=== PATIENT | female | born 1950 | race Caucasian/White ===

== ENCOUNTER → 2018-06-08 07:31 | Outpatient (CLI) | payer MEDICARE, OTHER, SELFPAY ==
--- NOTE | 2018-06-08 07:34 | DI.MG.S_ITS ---
BILATERAL DIGITAL SCREENING MAMMOGRAM 3D/2D WITH CAD: 06/08/2018 CLINICAL: Routine screening. Comparison is made to exams dated: 04/28/2017 mammogram, 04/22/2016 mammogram - [facility], and 07/15/2014 mammogram - [facility]. There are scattered fibroglandular elements in both breasts. Current study was also evaluated with a Computer Aided Detection (CAD) system. No significant masses, calcifications, or other findings are seen in either breast. There has been no significant interval change. IMPRESSION: NEGATIVE There is no mammographic evidence of malignancy. A 1 year screening mammogram is recommended. This exam was interpreted at Station ID: [id number]. NOTE: For mammograms, a report in lay terms will be sent to the patient. Approximately 15% of breast malignancies will not be visualized mammographically. In the management of a palpable breast mass, a negative mammogram must not discourage biopsy of a clinically suspicious lesion. Electronically Signed By: Phong castro/yahaira:06/08/2018 20:24:45 letter sent: Normal Exam ACR BI-RADS Category 1: Negative [id number]
== END ==
PROVIDERS: PCP Family Medicine; Visit Provider Family Medicine
DX: Z12.31 Encounter for screening mammogram for malignant neoplasm of breast (principal)
CPT/HCPCS: 77063; 77067

== ENCOUNTER → 2018-11-09 07:40 | Outpatient (CLI) | payer MEDICARE, OTHER, SELFPAY ==
--- NOTE | 2018-11-09 | DI.MRI.S_ITS ---
PROCEDURE: MR KNEE LT WO CON INDICATIONS: PAIN IN LEFT KNEE TECHNIQUE: Noncontrast sagittal PD fast spin echo and T2 fast spin echo with fat saturation, sagittal 3-D FLASH with fat saturation; coronal T1 spin echo and PD fast spin echo with fat saturation, and axial PD fast spin echo with fat saturation through the knee. COMPARISON: [facility], MR, LOWER EXTREM. JNT WO CONTRAST, 01/26/2010, 18:28. [facility], CR, XR KNEE ARTHRITIC SERIES LT, 06/02/2018, 8:35. FINDINGS: Image quality: Excellent. Menisci: There is medial extrusion of the medial meniscus, a new since the prior examination. Linear high signal intensity obliquely traversing the posterior horn medial meniscus is present, and is more apparent, indicating progressive oblique tearing. No amorphous signal within the medial meniscal body is present, demonstrating inferior articular surface extension, indicating degenerative tearing. The anterior horn lateral meniscus is diminutive, compatible with postsurgical sequelae. Cruciate ligaments: The anterior and posterior cruciate ligaments appear intact. There is new moderate T2 signal elevation along the course of the anterior cruciate ligament. Medial structures: The medial collateral ligament appears intact. Small focus of fluid signal intensity within the semimembranosus at the musculotendinous junction. Visualized portions of the pes anserinus tendons appear normal. No abnormal bursal fluid. Lateral structures: The lateral collateral ligament, long and short heads of the biceps femoris tendon appear intact. The popliteus tendon appears normal. Iliotibial band appears normal. Anterior structures: The quadriceps and patellar tendons appear intact. Patellar alignment is normal. No femoral trochlear dysplasia or ventral trochlear prominence. No edema in the infrapatellar fat pad. Bones and cartilage: No bone marrow contusions or fractures. Moderate ill-defined T2 signal elevation within the central aspect of the tibial plateau is present, compatible with degenerative marrow edema. There is moderate tricompartmental periarticular osteophyte formation. Moderate diffuse articular cartilage loss overlies the weightbearing aspects of the medial femoral condyle and medial tibial plateau. Moderate articular cartilage loss overlies the weightbearing aspects of the lateral femoral condyle and lateral tibial plateau. Superimposed severe articular cartilage loss overlies the posterior weightbearing aspect of the lateral tibial plateau. Moderate cartilage loss overlies the patellar apex. Joint space: There is a small knee joint effusion and a small Moreno's cyst. Normal appearing synovial plicae are incidentally noted. IMPRESSION: 1. Progressive medial meniscal tearing. 2. Presumed postsurgical sequelae involving the lateral meniscus. 3. Myxoid degeneration of the anterior cruciate ligament. 4. Tricompartmental articular cartilage loss. 5. Small knee joint effusion and small Moreno's cyst. Dictated by: Rodrick Cardoso M.D. on 11/09/2018 at 10:30 Approved by: Rodrick Cardoso M.D. on 11/09/2018 at 10:40
== END ==
PROVIDERS: PCP Family Medicine; Visit Provider Orthopaedic Surgery
DX: M25.562 Pain in left knee (principal); S83.242A Other tear of medial meniscus, current injury, left knee, initial encounter; M71.22 Synovial cyst of popliteal space [Baker], left knee
CPT/HCPCS: 73721

== ENCOUNTER → 2018-11-24 09:33 | Outpatient (CLI) | payer MEDICARE, OTHER, SELFPAY ==
[2018-11-24 09:46] LABS: RBC Urine None Seen (0-5/HPF); WBC Urine None Seen (0-5/HPF)
[2018-11-24 10:14] LABS: Add Manual Diff / Slide Review NO; Basophils Absolute Auto 100 /uL (0-100); Basophils Percent Auto 0.7 % (0-2); Eosinophils Absolute Auto 100 /uL (0-450); Eosinophils Percent Auto 1.3 % (2-4); Hematocrit 41.5 % (36-46); Hemoglobin 13.9 g/dL (12.0-16.0); Lymphocytes Absolute Auto 2400 /uL (1100-4500); Lymphocytes Percent Auto 32.6 % (25-40); Mean Corpuscular HGB Conc 33.3 % (30-36); Mean Corpuscular Hemoglobin 29.7 PG (26-34); Mean Corpuscular Volume 89.2 fL (80-100); Monocytes Absolute Auto 500 /uL (0-900); Monocytes Percent Auto 7.4 % (3-14); Neutrophils Absolute Auto 4200 /uL (1500-7000); Platelet Count 261 X10^3/uL (150-400); Red Blood Cell Count 4.66 X10^6/uL (4.0-5.2); Red Cell Distribution Width 13.5 % (11.6-14.8); White Blood Cell Count 7.2 X10^3/uL (4.5-11.0)
[2018-11-24 10:22] LABS: Appearance Urine UA CLEAR; Bilirubin Urine UA NEGATIVE (NEGATIVE); Color Urine UA YELLOW; Glucose Urine UA NEGATIVE (Negative); Ketones Urine UA NEGATIVE (NEGATIVE); Leukocyte Esterase Urine UA NEGATIVE (NEGATIVE); Nitrite Urine UA NEGATIVE (Negative); Occult Blood Urine UA NEGATIVE (Negative); Protein Urine UA NEGATIVE (Negative); Urobilinogen Urine UA 0.2 E.U./dL (0.2)
[2018-11-24 10:26] LABS: Hemoglobin A1C% w Est Avg Glu 5.6 % (4.0-6.0)
[2018-11-24 10:36] LABS: Amorphous Sediment Urine 3+; Bacteria Urine Occasional (0-1); Culture Indicated Urine Cult Not Indicated
[2018-11-24 10:39] LABS: BUN Creatinine Ratio 38.6 (6-22); Blood Urea Nitrogen 27 mg/dL (7-17); Calcium 9.7 mg/dL (8.4-10.2); Carbon Dioxide 29 mmol/L (22-32); Chloride 104 mmol/L (98-107); Estimated Glomerular Filt Rate > 60.0 mL/min (>60); Glucose 90 mg/dL (80-110); HEMOLYSIS < 15 (0-50); Potassium 4.5 mmol/L (3.4-5.1); Sodium 141 mmol/L (137-145)
== END ==
PROVIDERS: Family Provider Family Medicine; PCP Family Medicine; Visit Provider Orthopaedic Surgery
DX: Z01.818 Encounter for other preprocedural examination (principal); Z01.812 Encounter for preprocedural laboratory examination; N39.9 Disorder of urinary system, unspecified; Z13.1 Encounter for screening for diabetes mellitus; R73.9 Hyperglycemia, unspecified
CPT/HCPCS: 36415; 80048; 81001; 83036; 85025; 93005; 93010

== ENCOUNTER 2019-02-09 06:17 | Day surgery (SDC) | payer MEDICARE, OTHER, SELFPAY ==
[2019-01-28 08:52] VITALS: BMI 24.2
[2019-02-09] VITALS (15 sets, daily range): BP systolic 114–139; BP diastolic 61–84; PULSE 75–104; RESP 13–21; TEMP 36.6–37.2; O2SAT 17–98; BMI 24.2
--- NOTE | 2019-02-09 06:00 | DI.RAD.S_ITS ---
PROCEDURE: XR KNEE LT 1TO2V INDICATIONS: prosthesis placement left knee TECHNIQUE: 2 view(s) of the knee acquired. COMPARISON: None. FINDINGS: Bones: Patient is status post knee joint arthroplasty. Hardware components are in expected positions. Visualized bony structures are intact. Soft tissues: Overlying postoperative changes are noted. IMPRESSION: Normal postoperative alignment after left total arthroplasty. A surgical drain overlies the operative bed. Dictated by: Jesus Will M.D. on 02/09/2019 at 11:06 Approved by: Jesus Will M.D. on 02/09/2019 at 11:07
[2019-02-09] MEDS: ACETAMINOPHEN 325 MG TABLET 975 MG PO ×2 (07:02→21:48)
[2019-02-09] MEDS: LACTATED RINGERS 1,000 ML 42 ML IV ×2 (07:03→09:20)
[2019-02-09] MEDS: MELOXICAM 7.5 MG TABLET 15 MG PO (07:03)
[2019-02-09] MEDS: PREGABALIN 75 MG CAPSULE PO (07:03)
[2019-02-09] MEDS: VANCOMYCIN 1,000 MG/200 ML FROZ.PIGGY 200 MG IV (07:15)
--- NOTE | 2019-02-09 07:59 | PM.PREOP ---
Pre-operative Note Interval Note History & Physical reviewed/Exam performed by Physician: Yes Changes to H&P: No
--- NOTE | 2019-02-09 07:59 | PM.OP.1 ---
Operative Date/Time/Diagnoses Date of procedure: 02/09/19 Time of procedure: 07:59 Pre-op diagnosis: left knee OA Post-op diagnosis: same Procedure & Clinicians Procedure: Left total knee arthroplasty Same procedure as scheduled: Yes Indications: The patient has had progressively worsening left knee pain with radiographic changes consistent with arthritis. Non-operative management has failed and the patient has requested total knee replacement. The risks, benefits and alternatives to surgery were discussed with the patient prior to proceeding. Risks discussed included, but were not limited to, failure to relieve pain, stiffness, infection, nerve damage, deep venous thrombosis, pulmonary embolism, stroke, coma, heart attack, permanent paralysis and , as well as the potential need for eventual revision of the prosthetic. Surgeon: Tejal Horvath Assistant Maintenance Manager: Marybel Olmstead Anesthesia Type: General and Spinal Operative Notes Findings: Severe left knee osteoarthritis, good stability Closure Type: primary Specimen(s): none sent Prosthetic devices, grafts, tissues, transplants, or devices: horvath and nephchristy byers BCS2 5 femur, 3 tibia, +9 poly, 35 by7.5 patella Applied: drain(s) Estimated Blood Loss (mL): 250 Blood products transfused: none Tourniquet time (min): 72 Procedure in detail: The patient was seen in the pre-operative area, where the patient identified the left knee as the operative site and this was marked with my initials. The patient received pre-operative antibiotics, and was taken to the operating room and placed on the operative table in the supine position. After satisfactory anesthesia, a time signal wirer out was performed. The left leg was encircled with a tourniquet about the proximal thigh, and the leg was prepared from the toes to the tourniquet with ChloroPrep in the usual fashion and draped through sterile drapes. The leg was elevated and exsanguinated with Eschmark bandage and the tourniquet inflated to [250] mmHg pressure. The knee was approached through an approximately 18 cm incision centered over the patella and carried into the knee through a medial parapatellar arthrotomy. Portion of the medial and lateral meniscus was resected. Soft tissue was carefully mobilized around the patella the patella was measured with a caliper. Bone was resected from the patella and the patellar height was reconstituted with up an appropriate sized patellar component. A cover was then placed on the patella. A small amount of additional medial and lateral meniscus was resected. The visionare guide fit well to the distal femur. It looked like an appropriate distal femoral cut and the cut was made without difficulty. The rotation was assessed and the appropriate size femoral guide was placed on the distal femur and finishing cuts were made. There was no evidence of notching. The anterior, posterior and chamfer cuts were then made. The posterior osteophytes and soft tissues were then removed. The posterior capsule was injected with part of a mixture of 60 ml 0.25% Marcaine mixed with 20 ml Exparel for post operative pain control. The remainder of this mixture was injected into the capsule and subcutaneous tissues during cement curing. The tibia was prepared and the visionaire guide fit well to the distal tibia. The rotation was assessed. The patient was placed in extension residual medial and lateral meniscus as well as any residual bone was carefully resected. [No] additional tibia was resected. Hemostasis was achieved especially posteriorly. Additional local was injected into the posterior capsule. The extension gap was assessed and additional releases for gap balancing were performed as necessary. It was checked with the gap laminated plastics assembler and gluer. The femoral component was trial was placed and the notch was finished. Trial tibial and femoral components were then placed and the knee placed through a range of motion. Range of motion was [0-130], with good stability throughout the range. The trials were then removed, and the tibia was finished. The bone was prepared with pulsatile lavage, and dried with a sponge. Cement was applied and the final prosthetics placed. Excess cement was removed during and after cement curing. A brief Betadine soak was performed. After confirming there was no extruded cement posteriorly, the final tibial insert was placed. The knee was copiously irrigated and the tourniquet deflated. Hemostasis was obtained with the bovie. A drain was placed and brought out superolaterally. The capsule was closed with interrupted vicryl suture. The subcutaneous layer was closed with barbed sutures, and the skin with a running 3-0 V-Lock suture and Surgical glue. An Aquacel Ag dressing was applied and the patient was taken to recovery having tolerated the procedure well. Complications: none Condition: stable Disposition: Acute Care Plan for aftercare: The patient will be maintained on a standard total knee replacement protocol with weight bearing as tolerated. The patient will receive Lovenox and sequential compression devices for DVT prophylaxis. The patient will be discharged home when safe for the home environment.
[2019-02-09] MEDS: CEFAZOLIN 2 GM/100 ML FROZ.PIGGY IV ×2 (08:15→17:01)
--- NOTE | 2019-02-09 08:27 | SUR.OPER ---
Supine on padded OR bed. Pillow under head, arms secured on padded armboards <90 degree abduction. Safety belt across torso. Non-operative leg secured with tape over blanket over lower leg. Operative leg secured in DeMayo/Edison positioner. Foam padded brace at thigh of operative leg.
[2019-02-09] MEDS: BUPIVACAINE 0.25% W/ EPI 30 ML VIAL 60 ML INJ (08:34)
[2019-02-09] MEDS: BUPIVACAINE LIPOSOME 266 MG/20 ML VIAL INJ (08:35)
[2019-02-09] MEDS: TRANEXAMIC ACID 1,000 MG VIAL 1000 MG INJ ×2 (08:37→09:45)
[2019-02-09] MEDS: POVIDONE-IODINE 15 ML, SODIUM CHLORIDE 0.9% 250 ML TOP (08:38)
--- NOTE | 2019-02-09 10:38 | SUR.PHASEI ---
glasses returned to patient, Spoke to Dr. Weir re patient's anxiety and tearfulness. Order received. Resp unlabored, skin warm and dry. continued reassurance given.
[2019-02-09] MEDS: LORazepam 2 MG/ML SYRINGE 0.25 MG IV (10:43)
--- NOTE | 2019-02-09 11:02 | SUR.PHASEI ---
VSS, calm, warm and comfortable, tolerating PO well. Stable
--- NOTE | 2019-02-09 11:13 | SUR.PHASEI ---
1105 to room 220. bed down and locked, call light within reach, SCDs on, clothing and personal bag to room, glasses with patient;case on bedside table. No questions from staff. Patient a little tearful, daughter stated that it wouldn't be her mother if she wasn't. patient repeatedly expressed appreciation for care. Stable. 98% sat on RA.
[2019-02-09] MEDS: METOCLOPRAMIDE 10 MG/2 ML INJ IV (11:42)
[2019-02-09] MEDS: LACTATED RINGERS 1,000 ML 125 ML IV (12:07)
[2019-02-09] MEDS: ONDANSETRON 4 MG/2 ML INJ IV (15:31)
[2019-02-09] MEDS: PROMETHAZINE 25 MG SUPP PR (17:16)
--- NOTE | 2019-02-09 18:09 | PT.IIE ---
Current Diagnoses Unilateral primary osteoarthritis, left knee (02/09/19) Surgery Performed Operation Date: 02/09/19 07:45 Actual Procedures p Total Knee Arthroplasty(Left) - Tejal Anglin MD Surgical History (Last Updated 01/28/19 @ 09:25 by Indy Phillips RN) History of arthroscopy of both knees (Acute) Hx of cholecystectomy (Acute) Status post bilateral cataract extraction (Acute) Anesthesia (Resolved) History of thyroidectomy Status post eye surgery Status post hysterectomy (~1986) Medical History (Last Updated 01/28/19 @ 09:23 by Indy Phillips RN) History of esophageal stricture (Acute) Legally blind (Acute) Cataracts, bilateral (Chronic) Chronic cough (Chronic) Glaucoma (Chronic) Headache (Chronic) Migraines (Chronic) Osteoarthritis (Chronic) Osteoporosis (Chronic) Sleep apnea (Chronic) Fractures (Resolved) Physical Therapy Inpatient Evaluation/Re-Eval M1 PT/OT-IP Prior Functional Status Start: 02/09/19 14:56 Freq: NEEDED Status: Active Protocol: Document 02/09/19 14:00 (Rec: 02/09/19 15:13 [email or web address]) Medical Review Prior Functional Status Medical History Reviewed Yes Diet/Fluid Consistency Regular Communication No deficits noted. able to make needs known. pt stated she is legally blind bilaterally but L worse than R . Uses magnifying glassess most of the time. Mobility and Gait Pt was an independent ambulator at home and community without AD. Pt usually walks slow due to her poor vision. Pt doesnt drive. Activities of Daily Living and IADL's Pt was indepedent with ADLs and most IADLs without AD. She usually needed assistance for grocery shop, going to the bank or doctor appts Social History Household Members spouse children Living Arrangements House Number of Floors (Floors) One Floor Number of Stairs To Enter/Railing? 2 MANE without railings. Has a 2inch threshold to get into shower Home Environment High Toilet Walk in Shower Built-In Shower Seat Home Equipment Four Wheel Walker Straight Cane Grab Bars Near Toilet Employment Status Retired Additional Social History Comment Pt lives in [facility] with her , son and dtr in law in a 1level house. Although pt stated she is legally blind bilaterally, she is very independent and active prior to surgery. Pt goes to gym 3x/ week for overall strengthening. Pt has outpatient PT appt set up in [facility] starting from next Fri. Pt also stated her / family would be able to assist as needed, or she could stay at her dtr house. M2 PT-IP Current Condition Start: 02/09/19 14:56 Freq: NEEDED Status: Active Protocol: Document 02/09/19 14:00 HH (Rec: 02/09/19 15:13 [email or web address]) Physical Therapy Current Condition Current Condition Evaluation Date 02/09/19 Treatment Diagnosis Post op L TKA, impaired gait and activity tolerance Onset Date 02/09/19 Weight Bearing Status Weight Bearing Status Weight Bear as Tolerated M3 PT-IP Subjective Start: 02/09/19 14:56 Freq: NEEDED Status: Active Protocol: Document 02/09/19 14:00 HH (Rec: 02/09/19 15:13 [email or web address]) Subjective Physical Therapy Visit Type Type Initial Evaluation Visit Start Time 14:00 Visit Stop Time 14:45 Total Visit Minutes 45 Number of EXHIBIT DESIGNER Visits 0 Physical Therapy Visit Comments Patient Comments I could move and feel my L leg. But little bit nausea. Patient Goals to return home and participate outpatient PT Therapy Pain Assessment Pain Present Pain Present Denied Pain M4 PT-IP Mobility and Gait Start: 02/09/19 14:56 Freq: NEEDED Status: Active Protocol: Document 02/09/19 14:00 HH (Rec: 02/09/19 15:13 [email or web address]) PT-Bed Mobility Assessment Rolling Type of Rolling Roll to Left Level of Assist Standby Assistance Supine to Sit Supine to Sit Standby Assistance Head of Bed Elevated Bedrails Sit to Supine Sit to Supine Standby Assistance Head of Bed Elevated Bedrails Scooting Scooting to Edge of Bed Standby Assistance PT-Transfer Assessment Sit to and From Stand Sit to and from Stand Contact Guard Assistance Use of Upper Extremities Equipment Transfer Assistive Device Gait Belt Front Wheeled Walker Orthotic/Prosthetic Devices or Brace: No Transfers Transfer Destination Bed Chair Toilet Transfer Technique Stand Step Pivot Transfer Ability Level of Assist Contact Guard Assistance Comments Mobility Comments BP during session 130s/ 70s O2 Sat .95% Pt got up to L side EOB. She was able to single leg raise her LLE and pivot to L side. She was able to stand without support while she was vomiting for approx 5 minutes. Pt also transferred to chair/ toilet with CGA FWW. Pt appears to have good understanding of hand placements and use of stagger stance for transfer activities. Gait Assessment Gait Gait Assistance Required: Contact Guard Assist Distance (Feet) 20 Able to Maintain Weight Bearing Status Yes During Gait Assistive Devices Assistive Device Gait Belt Front Wheeled Walker Orthotic/Prosthetic Devices or Brace: No Gait Deviations General Gait Pattern Antalgic Decreased Stride Length Decreased Feet Clearance Step-to Gait Factors Limiting Gait Function Factors Limiting Gait Function Decreased Activity Tolerance Decreased Sensation Decreased Strength Limited Range of Motion Pain Poor Balance Comments Gait Comments Pt amb around her room and went to bathroom for toileting with FWW CGA. Pt c/o nausea and vomitted while standing unsupported. She amb with slight antalgic gait on L but remained very steady without c /o buckling/ numbness. Stair Climbing Assessment Comments Stair Climbing Comments did not attempt due to fatigue PT-Balance Assessment Sitting Balance and Reactions Static Sitting Balance Ability Normal Dynamic Sitting Balance Ability Normal Standing Balance and Reactions Static Standing Balance Ability Good Dynamic Standing Balance Ability Good Device Used FWW M5 PT-IP Objective Assessments Start: 02/09/19 14:56 Freq: NEEDED Status: Active Protocol: Document 02/09/19 14:00 HH (Rec: 02/09/19 18:07 [email or web address]) Orientation Orientation/Cognition Level of Alertness Alert Orientation Name Age Birthday Month Date Year Day of Week Place Situation Language Function Ability No Deficits Noted Safety Awareness Understands Safety Issues Memory Description No Deficits Noted Comments pt is legally blind bilaterally and wear magnifying glasses at all times. Gross Range of Motion Upper Extremity ROM Assessment Within Functional Limits Lower Extremity ROM Assessment Left Impaired Impairments L knee AROM 2 - 105 degrees. Strength Upper Extremity Strength Assessment Within Functional Limits Lower Extremity Strength Assessment Left Impaired Comments Strength Comments 3+/5 for L knee ext and flex Coordination Assessment Gross Coordination Gross Coordination WNL Sensation Assessment Sensation Gross Sensation WNL Light Touch Intact Proprioception (Position) Intact Muscle Tone Muscle Tone WNL Yes M6 PT-IP Treatment Start: 02/09/19 14:56 Freq: NEEDED Status: Active Protocol: Document 02/09/19 14:00 HH (Rec: 02/09/19 18:07 [email or web address]) Physical Therapy Treatment Exercises Exercises Ankle Pumps Gluteal Sets Quad Sets Heel Slides Straight Leg Raises Education Education Provided Precautions Weight Bearing Status Post-Op Packet Safety M7 PT-IP Assessment and Plan Start: 02/09/19 14:56 Freq: NEEDED Status: Active Protocol: Document 02/09/19 14:00 HH (Rec: 02/09/19 15:13 HH [email or web address]) PT Summary Assessment and Plan Summary Assessment Summary Pt is a pleasant 68yo female POD #1 L TKA. Pt's dtr at bedside upon assessment. Although pt has congenital cataract bilatearlly but she was very independent and active prior to surgery. Pt is low complexity and able to perform bed mob, toilet transfer and amb 20 feet with FWW CGA. Pt vomited once and void during vomiting but she reports she feels better after amb. Pt's knee ROM and strength is close to baseline at this point but she has to clear 2 steps without using railings prior to be d/c. Pt is expected to be d.c home with family assist with outpatient PT to improve mobility. pt also only has a 4WW from her friends and a SPC who most likely needs a FWW to increase her stability and safety. Goals Bed Mobility Goal Independent Transfer Goal Independent Front Wheeled Walker Gait Goal Independent Front Wheel Walker Gait Distance 200 Other Goals 2 steps without railings Independently Days to Meet Goals 3 Frequency of Treatment Frequency Of Treatment Twice a Day Treatment Plan Physical Therapy Treatment Plan Bed Mobility Training Transfer Training Gait Training Therapeutic Exercise Balance Retraining Post Op Education Discharge Planning Hot or Cold Pack Other Recommendations and Next Treatment bed mob, transfers and gait Focus training as portillo stair climbing Recommendations To Nursing Amount of Assist Needed 1 Person Assist Discharge Recommendations PT Discharge Recommendations Home with Assistance Outpatient PT Equipment Needed for Home Before FWW Discharge
[2019-02-09] MEDS: DOCUSATE 100 MG CAPSULE PO (21:48)
[2019-02-09] MEDS: LORATADINE 10 MG TABLET PO (21:48)
[2019-02-09] MEDS: ASPIRIN EC 81 MG TABLET PO (21:49)
[2019-02-09] MEDS: TRAVOPROST OPHTH DROPS 1 DROPS EYE-BOTH (21:49)
[2019-02-09] MEDS: BRIMONIDINE 0.1% OPHTH 5 ML 1 DROPS EYE-BOTH (21:49)
--- NOTE | 2019-02-09 23:50 | PC.NURSE ---
Post-op notes: Flora is Ox3, post-op VS stable. Denies pain to left knee, drsg is CDI. Hemovac patent with 140 ml total sero-sang drainage since unclamped by previous RN. CMS intact, she denies any numbness or tingling. Ambulating to bathroom with one person SBA, good use of FWW, only really needing help in and out of bed, otherwise is only SBA. Had nausea/emesis post-op with no relief from reglan or zofran, Dr Anglin up to see patient & ordered phenergan suppository. Pt attempted to eat bites of dinner with more emesis/dry heaving, reported hungry. Assisted her from recliner to bed and suppository given. Since then she has denied nausea and has been able to eat soup and snacks. She reports problems in the past with anesthesia and said that phenergan suppositories are the only thing that works for me. Remains Ox3 and using call button appropriately, instructed to call if she has any needs or concerns.
[2019-02-10 00:22] VITALS: BP 105/72; PULSE 81; RESP 18; TEMP 36.4; O2SAT 94
[2019-02-10] MEDS: CEFAZOLIN 2 GM/100 ML FROZ.PIGGY IV (00:22)
[2019-02-10] MEDS: OXYCODONE IR 5 MG TABLET PO ×4 (02:57→13:18)
[2019-02-10 04:41] VITALS: BP 114/64; PULSE 82; RESP 18; TEMP 36.6; O2SAT 96
[2019-02-10] MEDS: LEVOTHYROXINE 150 MCG TABLET PO (05:23)
[2019-02-10] MEDS: PANTOPRAZOLE 20 MG TABLET PO (05:23)
[2019-02-10] MEDS: LACTATED RINGERS 1,000 ML 125 ML IV (05:24)
[2019-02-10 06:28] LABS: Hematocrit 34.8 % (36-46); Hemoglobin 11.7 g/dL (12.0-16.0)
[2019-02-10 08:00] VITALS: BP 120/68; PULSE 76; RESP 18; TEMP 36.8; O2SAT 96
[2019-02-10 09:10] VITALS: PULSE 80; RESP 18; O2SAT 96
--- NOTE | 2019-02-10 09:30 | PT.IPTN ---
Current Diagnoses Unilateral primary osteoarthritis, left knee (02/09/19) Surgery Performed Operation Date: 02/09/19 07:45 Actual Procedures p Total Knee Arthroplasty(Left) - Tejal Anglin MD Physical Therapy Treatment Note M2 PT-IP Current Condition Start: 02/09/19 14:56 Freq: NEEDED Status: Active Protocol: Document 02/09/19 14:00 HH (Rec: 02/09/19 15:13 HH [email or web address]) Physical Therapy Current Condition Current Condition Evaluation Date 02/09/19 Treatment Diagnosis Post op L TKA, impaired gait and activity tolerance Onset Date 02/09/19 Weight Bearing Status Weight Bearing Status Weight Bear as Tolerated M3 PT-IP Subjective Start: 02/09/19 14:56 Freq: NEEDED Status: Active Protocol: Document 02/10/19 09:30 GGD (Rec: 02/10/19 11:27 GGD [email or web address]) Subjective Physical Therapy Visit Type Type Treatment Note Visit Start Time 09:00 Visit Stop Time 09:30 Total Visit Minutes 30 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 Therapy Pain Assessment Pain When Pain Assessed At Rest Pain Present Pain Present Pain Reported Location l knee Intensity 5 Scale Used Numeric (1 - 10) M4 PT-IP Mobility and Gait Start: 02/09/19 14:56 Freq: NEEDED Status: Active Protocol: Document 02/10/19 09:30 GGD (Rec: 02/10/19 11:27 GGD [email or web address]) PT-Transfer Assessment Sit to and From Stand Sit to and from Stand Contact Guard Assistance Use of Upper Extremities Equipment Transfer Assistive Device Gait Belt Front Wheeled Walker Orthotic/Prosthetic Devices or Brace: No Transfers Transfer Destination Chair Toilet Transfer Ability Level of Assist Contact Guard Assistance Gait Assessment Gait Gait Assistance Required: Contact Guard Assist Distance (Feet) 50 Able to Maintain Weight Bearing Status Yes During Gait Assistive Devices Assistive Device Gait Belt Front Wheeled Walker Orthotic/Prosthetic Devices or Brace: No Gait Deviations General Gait Pattern Antalgic Decreased Stride Length Decreased Feet Clearance Step-to Gait Factors Limiting Gait Function Factors Limiting Gait Function Decreased Activity Tolerance Decreased Sensation Decreased Strength Limited Range of Motion Pain Poor Balance Stair Climbing Assessment Evaluation Level of Assist On Stairs Minimal Assistance Devices Stair Climbing Assistive Devices Straight Cane Technique/Endurance Stair Climbing Direction Ascend and Descend Stair Climbing Technique Step to Step Number of Steps Climbed 1 Query Text: Stair Climbing Set # Repetitions (reps) 2 M5 PT-IP Objective Assessments Start: 02/09/19 14:56 Freq: NEEDED Status: Active Protocol: Document 02/09/19 14:00 HH (Rec: 02/09/19 18:07 HH [email or web address]) Orientation Orientation/Cognition Level of Alertness Alert Orientation Name Age Birthday Month Date Year Day of Week Place Situation Language Function Ability No Deficits Noted Safety Awareness Understands Safety Issues Memory Description No Deficits Noted Comments pt is legally blind bilaterally and wear magnifying glasses at all times. Gross Range of Motion Upper Extremity ROM Assessment Within Functional Limits Lower Extremity ROM Assessment Left Impaired Impairments L knee AROM 2 - 105 degrees. Strength Upper Extremity Strength Assessment Within Functional Limits Lower Extremity Strength Assessment Left Impaired Comments Strength Comments 3+/5 for L knee ext and flex Coordination Assessment Gross Coordination Gross Coordination WNL Sensation Assessment Sensation Gross Sensation WNL Light Touch Intact Proprioception (Position) Intact Muscle Tone Muscle Tone WNL Yes M6 PT-IP Treatment Start: 02/09/19 14:56 Freq: NEEDED Status: Active Protocol: Document 02/10/19 09:30 GGD (Rec: 02/10/19 11:27 GGD [email or web address]) Physical Therapy Treatment Exercises Exercises Ankle Pumps Gluteal Sets Quad Sets Heel Slides Straight Leg Raises Education Education Provided Precautions Safety M7 PT-IP Assessment and Plan Start: 02/09/19 14:56 Freq: NEEDED Status: Active Protocol: Document 02/10/19 09:30 GGD (Rec: 02/10/19 11:27 GGD [email or web address]) PT Summary Assessment and Plan Summary Assessment Summary Pt improving with mobility. She was able to progress gait distance with 4WW. She was safe with stair mobility with SPC and hand hold assist. She had increase in pain with gait . She is safe for home D/C when medically stable. Frequency of Treatment Frequency Of Treatment Twice a Day Treatment Plan Physical Therapy Treatment Plan Bed Mobility Training Transfer Training Gait Training Therapeutic Exercise Balance Retraining Post Op Education Discharge Planning Hot or Cold Pack Other Recommendations and Next Treatment bed mob, transfers and gait Focus training as portillo stair climbing Recommendations To Nursing Amount of Assist Needed 1 Person Assist Discharge Recommendations PT Discharge Recommendations Home with Assistance Outpatient PT
[2019-02-10] MEDS: MELOXICAM 7.5 MG TABLET 15 MG PO (09:32)
[2019-02-10] MEDS: ASPIRIN EC 81 MG TABLET PO (09:32)
[2019-02-10] MEDS: DOCUSATE 100 MG CAPSULE PO (09:32)
[2019-02-10] MEDS: ACETAMINOPHEN 325 MG TABLET 975 MG PO (09:33)
[2019-02-10] MEDS: BRIMONIDINE 0.1% OPHTH 5 ML 1 DROPS EYE-BOTH (09:39)
--- NOTE | 2019-02-10 13:08 | CM.DANOTE ---
Addendum entered by Meghana Nevarez LPN 02/10/19 13:52: Went to room to check in with pt. She and a family member are going over the d/c instuctions for home and she plans to leave as soon as this is completed. OUTPT PT is planned. Of note: pt is legally blind and uses magnifying glasses. She is more comfortable in her familiar home environment as per her pre-op plan information. PT has cleared her for the d/c to home today. Original Note: Discharge Planning/Care Management DCP: assessment: case received today and discussed in Team Rounds. Pt is a 68 year old female who admitted yesterday for a planned TKA Surgeon: Dr. Anglin Payer: Medicare and for Life Admission status: in review by UR ELLIE Bonilla noted in rounds that pt was fine for a d/c home today as long as she was cleared by PT. P: check in with pt and follow for d/c issues and options that may arise. Advanced directive, confirm from FAMILY Start: 02/09/19 11:37 Freq: Q24H Status: Active Protocol: Document 02/09/19 19:00 CAG (Rec: 02/09/19 21:12 CAG [id number]) Advance Directive, confirm on record Time 21:10 Person contacted patient Copy received No CM Discharge Assessment Start: 02/10/19 13:07 Freq: Status: Active Protocol: Document 02/10/19 13:07 ITV (Rec: 02/10/19 13:08 ITV [id number]) Discharge Planning Assessment Advance Directives? Yes Advance Directives on File No History Provided By Patient Medical Record Prior Living Arrangements House Household Members spouse children Review Status In Process Next Review Type Continued Stay Review Pre-Anesthesia Assessment Start: 01/28/19 08:52 Freq: Status: Complete Protocol: Document 01/28/19 08:52 CAB (Rec: 01/28/19 09:46 CAB [id number]) Pre-Anesthesia Assessment PAC Comment Pt is legally blind, no sight in left eye, requesting to meet PACU staff before surgery to familiarize herself with staff to assist with anxiety in recovery. 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 Apprentice Required No Height 167.64 cm Weight 68.039 kg Body Mass Index (BMI) 24.2 Hearing Ability Normal Visual Assist Glasses Barriers to Learning Visual Other Aids Yes: CPAP Hx Anesthesia Reactions Yes: Nausea, vomiting post-op, hard time coming out of anesthesia Hx Family Anesthesia Reaction No Hx Malignant Hyperthermia No Hx Blood Transfusions No Anesthesia Review Requested No 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 No Does patient have YUEN/SOB Yes: r/t asthma, environmental allergies Hx Sleep Apnea Yes CPAP/BIPAP use prescribed and used routinely Will Bring CPAP/BIPAP DOS Yes Currently Taking a [place] No Can You Climb a Flight of Stairs Without No SOB Hx Chest Pain No Hx SOB Yes: r/t asthma, environmental allergies Hx Syncope or Dizziness No Anti-Coagulant Therapy No Has a Insurance Claims Specialist No Cardiac Testing No Hx Pacemaker/ICD No Pacemaker Rep Required? No Cardiac Clearance Received Not Applicable Diet Type At Home Regular dysphagia No Urinary Catheter Present No Hx Urinary Self Catheterization No Diabetes No HgbA1C 5.6 Date 11/24/18 Patient No Lactating No Hx Drug Resistant Organism No Presence of External or Internal Medical No Devices Have you traveled outside the [facility] in the last 30 days? Marital Status Lives With spouse children Prior Living Arrangements House Number of Floors (Floors) One Floor Support System Child/Children Spouse Patient Discharge Plan Description Return Home Comment Pt no advised on length of stay per surgeon's office Feels Safe in Current Environment Yes Been Physically Hurt or Threatened By a No Person in Current Environment Do you have thoughts of harming yourself None or others? Are you currently considering suicide? No Do you have a plan to hurt yourself or No Plan others? Do You Have Any Spiritual Beliefs That No May Affect Your HC Choices? Do You Have Any Cultural Practices That No May Affect Your HC Choices? Spiritual Referral None Comment Jainism Who Can We Speak to About Patient's Care Family, friends Identifying Code for Release of Patient Juliet Information Health Care Proxy/Next of Kin Liliana (daughter) Health Care Proxy Emergency Contact Name Fortunato () Liliana ( daughter) Emergency Contact Phone Number Fortunato: [phone] Liliana Advance Directives? Yes Advance Directives on File No Requested Patient Bring Advanced Yes Directives DOS Power of Fiscal Services Director No PAC Instructions Bring CPAP/BIPAP Do not shave/clip surgical site Durable medical equipment Medications to take/avoid Nasal antibiotic No ETOH/petroleum product on skin DOS NPO Post-op transportation Pre-surgical wash Sensory aids Sturdy shoes/comfortable clothes Do not bring valuables and remove jewelry
--- NOTE | 2019-02-10 14:01 | PC.NURSE ---
pending discharge: Feels ready to d/c home. Seen by PT/OT and given their final instructions. Has eaten bkft/lunch and has had no further problems with n/v. Given rx. Reviewed d/c instruction sheets. Hemovac removed with tip intact. Dressing to site is c/d/i. Dtr present at time of teaching. Questions answered.
--- NOTE | 2019-02-10 14:43 | PC.NURSE ---
Discharge: D/c home via auto w/dtr. Voiced no concerns when she went.
== END 2019-02-10 14:15 | disposition home or self-care (01) ==
LOC: AC 02-10 07:58 → OR 02-10 14:51
PROVIDERS: Family Provider Family Medicine; PCP Family Medicine; Visit Provider Orthopaedic Surgery
PROC: 0SRD0JZ Replacement of Left Knee Joint with Synthetic Substitute, Open Approach (ICD-10-PCS; CPT 27447; principal; 2019-02-09 07:45)
DX: M17.12 Unilateral primary osteoarthritis, left knee (principal); J45.909 Unspecified asthma, uncomplicated; F41.9 Anxiety disorder, unspecified; H54.8 Legal blindness, as defined in USA
CPT/HCPCS: 27447; 36415; 73560; 85014; 85018; 94760; 97116; 97161; 97530; C1776; C9290; J0690; J1100; J2060; J2250; J2274; J2405; J2704; J2765; J3010; J3370

== ENCOUNTER → 2019-03-26 11:43 | Outpatient (CLI) | payer MEDICARE, OTHER, SELFPAY ==
[2019-02-09 11:22] VITALS: BMI 24.2
--- NOTE | 2019-03-26 | DI.US.S_ITS ---
PROCEDURE: US PERIPH VENOUS LOW EXTREM LT INDICATIONS: KNEE PAIN TECHNIQUE: Real-time imaging, as well as color and pulse Doppler interrogation, were performed of the lower extremity deep veins from the inguinal ligament to the popliteal fossa. COMPARISON: None. FINDINGS: The common femoral, femoral and popliteal veins are normally compressible, and free of intraluminal thrombus. Color and pulse Doppler demonstrate normal phasic intraluminal flow. There is normal augmentation response to distal compression maneuver. IMPRESSION: No sonographic evidence of deep venous thrombosis. Dictated by: Yas Pulido M.D. on 03/26/2019 at 13:57 Approved by: Yas Pulido M.D. on 03/26/2019 at 13:58
== END ==
PROVIDERS: Family Provider Family Medicine; PCP Family Medicine; Visit Provider Orthopaedic Surgery
DX: M25.562 Pain in left knee (principal)
CPT/HCPCS: 93971

== ENCOUNTER → 2019-09-11 07:46 | Outpatient (CLI) | payer MEDICARE, OTHER, SELFPAY ==
[2019-02-09 11:22] VITALS: BMI 24.2
[2019-09-11 08:53] LABS: Add Manual Diff / Slide Review NO; Basophils Absolute Auto 0 /uL (0-100); Eosinophils Absolute Auto 100 /uL (0-450); Eosinophils Percent Auto 2.6 % (2-4); Hematocrit 39.4 % (36-46); Hemoglobin 13.2 g/dL (12.0-16.0); Lymphocytes Absolute Auto 1300 /uL (1100-4500); Lymphocytes Percent Auto 28.7 % (25-40); Mean Corpuscular HGB Conc 33.4 % (30-36); Mean Corpuscular Hemoglobin 30.3 PG (26-34); Mean Corpuscular Volume 90.5 fL (80-100); Monocytes Absolute Auto 400 /uL (0-900); Monocytes Percent Auto 8.1 % (3-14); Neutrophils Absolute Auto 2800 /uL (1500-7000); Neutrophils Percent Auto 59.6 % (50-75); Platelet Count 226 X10^3/uL (150-400); Red Blood Cell Count 4.35 X10^6/uL (4.0-5.2); Red Cell Distribution Width 13.2 % (11.6-14.8); White Blood Cell Count 4.7 X10^3/uL (4.5-11.0)
[2019-09-11 09:11] LABS: Alanine Aminotransferase 15 IU/L (<35); Albumin 4.1 g/dL (3.5-5.0); Albumin Globulin Ratio 1.7 (1.0-2.8); Alkaline Phosphatase 67 U/L (38-126); Aspartate Aminotransferase 24 IU/L (14-36); BUN Creatinine Ratio 28.8 (6-22); Bilirubin Total 0.8 mg/dL (0.2-1.3); Blood Urea Nitrogen 23 mg/dL (7-17); Calcium 9.4 mg/dL (8.4-10.2); Carbon Dioxide 29 mmol/L (22-32); Chloride 105 mmol/L (98-107); Cholesterol 260 mg/dL (140-199); Estimated Glomerular Filt Rate > 60.0 mL/min (>60); Globulin 2.4 g/dL (1.7-4.1); Glucose 92 mg/dL (80-110); HDL Cholesterol 58 mg/dL (40-60); HEMOLYSIS < 15 (0-50); LDL Cholesterol Calculated 184 mg/dL (<100); Potassium 4.3 mmol/L (3.4-5.1); Sodium 142 mmol/L (137-145); Total Protein 6.5 g/dL (6.3-8.2); Triglycerides 89 mg/dL (35-150)
[2019-09-11 09:36] LABS: Thyroid Stimulating Hormone 0.41 uIU/mL (0.47-4.68)
== END ==
PROVIDERS: Family Provider Family Medicine; PCP Family Medicine; Visit Provider Family Medicine
DX: E03.9 Hypothyroidism, unspecified (principal); E78.5 Hyperlipidemia, unspecified
CPT/HCPCS: 36415; 80053; 80061; 84443; 85025

== ENCOUNTER → 2020-10-19 14:45 | Outpatient (CLI) | payer MEDICARE, OTHER, SELFPAY ==
[2020-05-15 10:44] VITALS: BMI 24.2
--- NOTE | 2020-10-19 14:47 | DI.RAD.S_ITS ---
PROCEDURE: XR LUMBAR SPINE MIN 4V INDICATIONS: lower back pain TECHNIQUE: 5 views of the lumbar spine were acquired. COMPARISON: [facility], CR, XR LUMBAR SPINE 2 OR 3 VIEWS, 06/23/2019, 11:48. FINDINGS: Bones: 6 ayo-nue-fhtezfa vertebrae are present. The 1st tqa-ebm-qwggiwx lumbar-type vertebra is referred as the transitional T12. The 2nd bqa-ftx-okybvqb lumbar type vertebra is referred as L1. Mild scoliosis. There is grade 1 anterolisthesis of L4 on L5. There is normal bony alignment. No vertebral body compression fractures. No suspicious bony lesions. Nsbn-bb-vbiowzxzbpox disc disease is present throughout the lumbar spine. There is severe facet arthropathy at L4-L5 and L5-S1. Soft tissues: Overlying bowel gas pattern is normal. No suspicious soft tissue calcifications. Oblique images: No pars defects. IMPRESSION: 1. Transitional anatomy. Please confirm vertebral levels prior to any surgery or interventional procedures. 2. Severe facet arthropathy at L4-L5 and L5-S1. 3. Mild diffuse degenerative disease in lumbar spine. 4. Mild scoliosis. Grade 1 anterolisthesis of L4 on L5 Dictated by: Andrew Frank M.D. on 10/19/2020 at 20:03 Approved by: Andrew Frank M.D. on 10/20/2020 at 10:11
== END ==
PROVIDERS: Family Provider Family Medicine; PCP Family Medicine; Referring Provider Registered Nurse; Visit Provider Registered Nurse
DX: M54.5 Low back pain (principal); M47.816 Spondylosis without myelopathy or radiculopathy, lumbar region; M47.817 Spondylosis without myelopathy or radiculopathy, lumbosacral region; M51.36 Other intervertebral disc degeneration, lumbar region; M41.9 Scoliosis, unspecified; M43.16 Spondylolisthesis, lumbar region
CPT/HCPCS: 72110

== ENCOUNTER → 2020-12-11 09:50 | Outpatient (CLI) | payer MEDICARE, OTHER, SELFPAY ==
[2020-05-15 10:44] VITALS: BMI 24.2
--- NOTE | 2020-12-11 09:53 | DI.RAD.S_ITS ---
PROCEDURE: XR CERVICAL SPINE 2V OR 3V INDICATIONS: cervical neck pain TECHNIQUE: 3 views of the cervical spine were acquired. COMPARISON: None. FINDINGS: Bones: No acute fractures to the C7 level. There is mild grade 1 anterolisthesis of C4 on C5 and grade 1 retrolisthesis of C5 on C6. The lateral masses of C1 appear intact on the odontoid view. No suspicious bony lesions. Multilevel disc space narrowing and degenerative endplate changes are seen that are most prominent at the C5-6 level. There is also multilevel uncovertebral joint and facet hypertrophy. Soft tissues: No prevertebral soft tissue swelling. IMPRESSION: No acute osseous abnormality. Mild grade 1 anterolisthesis of C4 on C5 and grade 1 retrolisthesis of C5 on C6. Multilevel spondylosis is worst at the C5-6 level. Dictated by: Jackson Kitchen M.D. on 12/11/2020 at 13:52 Approved by: Jackson Kitchen M.D. on 12/11/2020 at 13:54
== END ==
PROVIDERS: Family Provider Family Medicine; PCP Family Medicine; Referring Provider Family Medicine; Visit Provider Family Medicine
DX: M54.2 Cervicalgia (principal); M47.812 Spondylosis without myelopathy or radiculopathy, cervical region; M43.12 Spondylolisthesis, cervical region; M47.816 Spondylosis without myelopathy or radiculopathy, lumbar region
CPT/HCPCS: 72040

== ENCOUNTER → 2023-05-19 10:19 | Outpatient (CLI) | payer MEDICARE, OTHER, SELFPAY ==
[2020-05-15 10:44] VITALS: BMI 24.2
--- NOTE | 2023-05-19 10:20 | DI.RAD.S_ITS ---
PROCEDURE: XR PELVIS 1-2V INDICATIONS: back pain TECHNIQUE: 1 view(s) of the pelvis acquired. COMPARISON: None. FINDINGS: Bones: Asymmetric uqwc-qs-rbyhdbcc right hip joint osteoarthritic changes are seen with joint space narrowing, subchondral sclerosis and small marginal osteophyte formation. No fractures or dislocations. No evidence of avascular necrosis of femoral head. No suspicious bony lesions. Degenerative disc disease in visualized lower lumbar spine is seen. Soft tissues: Visualized bowel gas pattern is normal. No suspicious soft tissue calcifications. IMPRESSION: Asymmetric mild to moderate right hip joint osteoarthritis. No pelvic or hip fracture. No hip dislocation. No evidence of avascular necrosis. Degenerative disc disease in lower lumbar spine. Dictated by: Talon Crocker M.D. on 05/19/2023 at 11:47 Approved by: Talon Crocker M.D. on 05/19/2023 at 11:47
--- NOTE | 2023-05-19 10:20 | DI.RAD.S_ITS ---
PROCEDURE: XR LUMBAR SPINE 2-3V INDICATIONS: back pain TECHNIQUE: 3 views of the lumbar spine were acquired. COMPARISON: [facility], , XR LUMBAR SPINE MIN 4V, 10/19/2020, 14:51. FINDINGS: Bones: 5 bpd-kcu-dasfxfx vertebrae are present. Mild levoscoliosis of lumbar spine centered at L3 level is seen. There is 5 millimeter anterolisthesis of L4 on L5. 4 millimeter retrolisthesis of L1 on L2 is also seen.. No acute vertebral body compression fractures. Degenerative endplate changes are noted throughout lower thoracic and lumbar spine. No suspicious bony lesions. Soft tissues: Overlying bowel gas pattern is normal. No suspicious soft tissue calcifications. IMPRESSION: Degenerative disc disease throughout lumbar spine. No acute compression fracture. Likely degenerative spondylolisthesis at L1-2 and L4-5 levels as above. Mild levoscoliosis. Dictated by: Talon Crocker M.D. on 05/19/2023 at 11:47 Approved by: Talon Crocker M.D. on 05/19/2023 at 11:54
== END ==
PROVIDERS: Family Provider Family Medicine; PCP Family Medicine; Referring Provider Family Medicine; Visit Provider Family Medicine
DX: M47.816 Spondylosis without myelopathy or radiculopathy, lumbar region (principal); M51.36 Other intervertebral disc degeneration, lumbar region; M16.0 Bilateral primary osteoarthritis of hip; M41.9 Scoliosis, unspecified; M54.50 Low back pain, unspecified; R10.9 Unspecified abdominal pain; R14.0 Abdominal distension (gaseous)
CPT/HCPCS: 72100; 72170

== ENCOUNTER → 2023-06-02 08:09 | Outpatient (CLI) | payer MEDICARE, OTHER, SELFPAY ==
[2020-05-15 10:44] VITALS: BMI 24.2
--- NOTE | 2023-06-02 08:11 | DI.MG.S_ITS ---
BILATERAL DIGITAL SCREENING MAMMOGRAM 3D/2D WITH CAD: 06/02/2023 CLINICAL: Routine screening. Comparison is made to exams dated: 06/08/2018 mammogram, 04/28/2017 mammogram, and 04/22/2016 mammogram - [facility]. There are scattered areas of fibroglandular density in both breasts (category b / 25%-50% glandular tissue). Current study was also evaluated with a Computer Aided Detection (CAD) system. No significant masses, calcifications, or other findings are seen in either breast. There has been no significant interval change. IMPRESSION: NEGATIVE There is no mammographic evidence of malignancy. A 1 year screening mammogram is recommended. Based on the Tyrer Cuzick model (a risk assessment model) the patient's lifetime risk is 4.0% and her 10 year risk is 3.3%. According to the ACR, ACS, and NCCN guidelines, an annual breast MRI exam along with mammogram is recommended if the patient's lifetime risk is 20% or greater. This exam was interpreted at Station ID: [id number]. NOTE: For mammograms, a report in lay terms will be sent to the patient. Approximately 15% of breast malignancies will not be visualized mammographically. In the management of a palpable breast mass, a negative mammogram must not discourage biopsy of a clinically suspicious lesion. Electronically Signed By: Staci dover/yahaira:06/02/2023 09:23:34 letter sent: Normal Exam ACR BI-RADS Category 1: Negative 3341F
--- NOTE | 2023-06-02 08:11 | DI.CT.S_ITS ---
PROCEDURE: CT ABDOMEN PELVIS W CON INDICATIONS: abdominal pain bloating TECHNIQUE: After the administration of oral and intravenous contrast, axial sections were acquired from the lung bases to the pubic symphysis. Coronal and sagittal reformats were performed. For radiation dose reduction, the following was used: automated exposure control, adjustment of mA and/or kV according to patient size. COMPARISON:[facility], CT, CT-IVP, 05/13/2011, 10:14. FINDINGS: Image quality: Excellent. Lung bases: Unremarkable. Heart: No significant findings. Esophagus: Question mild distal esophageal wall thickening. Moderate hiatal hernia. ABDOMEN: Liver: Normal enhancement. No solid masses. Gallbladder: Surgically absent. There is post cholecystectomy dilatation of the biliary tree, with no obstructing mass noted. Biliary ducts: Unremarkable. Pancreas: Unremarkable. Spleen: Unremarkable. Adrenal Glands: Unremarkable. Kidneys and Ureters: Hypervascular mass, middle pole of right kidney, 5.3 cm, consistent with renal cell carcinoma. Multiple peripelvic cysts, left kidney.. Stomach and Bowel: Stomach, small bowel loops, and colon are unremarkable. Peritoneum: No abnormal intraperitoneal fluid. No free air. Ventral Wall: No hernia. Abdominal Nodes: No retroperitoneal or mesenteric adenopathy by size criteria. Vessels: Aorta and inferior vena cava are normal in size. PELVIS: Pelvic Organs: Uterus is surgically absent.. Bladder: Unremarkable. Pelvic Nodes: No enlarged lymph nodes. Miscellaneous: No inguinal hernias are seen. Bones: Lumbar degenerative change. No lytic or blastic bony lesions. No compression fractures. IMPRESSION: 1. 5.3 cm renal cell carcinoma, middle pole of right kidney. 2. No evidence of metastatic disease to the adrenals or lobe liver or bones. No evidence of spread into the right renal vein. Comment: An Urgent Findings note was created in PACS to ensure notification of the referring clinician. Dictated by: Ludwin Taylor M.D. on 06/02/2023 at 13:56 Approved by: Ludwin Taylor M.D. on 06/02/2023 at 14:07
[2023-06-02 08:35] LABS: Estimated Glomerular Filt Rate > 60 mL/min (>60)
== END ==
PROVIDERS: Radiology Diagnostic Radiology; Family Provider Family Medicine; PCP Family Medicine; Referring Provider Family Medicine; Visit Provider Family Medicine
DX: Z12.31 Encounter for screening mammogram for malignant neoplasm of breast (principal); C64.1 Malignant neoplasm of right kidney, except renal pelvis; N28.1 Cyst of kidney, acquired; R14.0 Abdominal distension (gaseous); R10.30 Lower abdominal pain, unspecified; Z90.49 Acquired absence of other specified parts of digestive tract
CPT/HCPCS: 36415; 74177; 77063; 77067; 82565; Q9967

== ENCOUNTER → 2023-11-17 09:36 | Outpatient (CLI) | payer MEDICARE, OTHER, SELFPAY ==
[2020-05-15 10:44] VITALS: BMI 24.2
--- NOTE | 2023-11-17 09:38 | DI.RAD.S_ITS ---
Bone Density Report Name: JOSH ZARATE Age: 73 Sex: Female Ethnicity: White Date of : 1950 Indication: osteopenia; Referring Provider: JERSON BEAN Study: Bone densitometry was performed. Exam Date: November 17, 2023 Accession number: [id number] Bone Density: Region BMD T-score Z-score Classification AP Spine(L1, L2, L3) 0.685 -3.0 -0.8 Osteoporosis Femoral Neck (Left) 0.665 -1.7 0.3 Osteopenia Total Hip (Left) 0.798 -1.2 0.5 Osteopenia Femoral Neck (Right) 0.622 -2.0 -0.1 Osteopenia Total Hip (Right) 0.764 -1.5 0.2 Osteopenia Total Hip Mean 0.781 -1.4 0.4 Osteopenia World Health Organization criteria for BMD impression classify patients as: Normal (T-score at or above -1.0), Osteopenia (T-score between -1.0 and -2.5), or Osteoporosis (T-score at or below -2.5). 10-year Fracture Risk: FRAX not reported because: Some T-score for Spine Total or Hip Total or Femoral Neck at or below -2.5 Previous Exams: -- Region Exam Age BMD T-score BMD Change BMD Change Date g/cm2 vs Baseline vs Previous -- AP Spine (L1-L3) 11/17/2023 73 0.685 -3.0 -0.091 (-11.7%)# -0.091 (-11.7%)# 04/22/2016 65 0.776 -2.2 Total Hip(Left) 11/17/2023 73 0.798 -1.2 -0.050 (-5.9%)# -0.050 (-5.9%)# 04/22/2016 65 0.848 -0.8 Total Hip(Right) 11/17/2023 73 0.764 -1.5 -0.115 (-13.1%)# -0.115 (-13.1%)# 04/22/2016 65 0.879 -0.5 -- *Denotes significance at 95% confidence level, LSC for AP Spine = 0.022 g/cm2, LSC for Total Hip = 0.027 g/cm2 # Denotes dissimilar scan types or analysis methods Impression: The patient has osteoporosis, based on the Total Spine T-score. No significant bone loss was observed. Discussion: INCREASED RISK OF FRACTURE. BONE DENSITY IS UNDESIRABLY LOW AT ONE OR MORE SKELETAL SITES, CONSISTENT WITH POSTMENOPAUSAL OSTEOPOROSIS. This patient's lowest T-score meets the World Health Organization's (WHO) criteria for osteoporosis at one or more sites (T-score -2.5 or below). In untreated patients, the risk of osteoporotic fracture increases approximately two-fold for each 1.0 SD decrease in T-score. Low bone density is not the only risk factor for fracture; also consider factors such as patient's age, frailty or poor health, risk of falling, risk of injury, previous osteoporotic fracture, family history of osteoporosis, cigarette smoking, low body weight, etc. Not everyone with low bone mineral density has osteoporosis; osteomalacia and other metabolic bone disorders should also be considered. Patients who have osteoporosis should be evaluated for specific diseases and conditions (secondary causes) that may cause or contribute to bone loss. The [place] [employer] Endocrinologists (AACE) and National Osteoporosis Foundation (NOF) recommend pharmacologic intervention for all postmenopausal women whose T-score is in this range. The patient should follow a healthful lifestyle (good nutrition with adequate calcium and vitamin D, and appropriate weight-bearing exercise). Follow-Up: Consider a repeat BMD and Vertebral Fracture Assessment (VFA) exam in 2 years or sooner if medically necessary, to reassess this patient's status. Reported by: ANTONIO SILVA MD on 11/17/2023 10:38:00 AM.
== END ==
PROVIDERS: Family Provider Family Medicine; PCP Family Medicine; Referring Provider Family Medicine; Visit Provider Family Medicine
DX: M81.0 Age-related osteoporosis without current pathological fracture (principal)
CPT/HCPCS: 77080

== ENCOUNTER → 2024-06-28 06:58 | Outpatient (CLI) | payer MEDICARE, OTHER, SELFPAY ==
[2020-05-15 10:44] VITALS: BMI 24.2
--- NOTE | 2024-06-28 07:02 | DI.MG.S_ITS ---
BILATERAL DIGITAL SCREENING MAMMOGRAM 3D/2D WITH CAD: 06/28/2024 CLINICAL: Routine screening. Comparison is made to exams dated: 06/02/2023 mammogram, 06/08/2018 mammogram, and 04/28/2017 mammogram - [facility]. Both breasts are heterogeneously dense, which may obscure small masses (category c / 51-75% glandular tissue). Current study was also evaluated with a Computer Aided Detection (CAD) system. No significant masses, calcifications, or other findings are seen in either breast. There has been no significant interval change. IMPRESSION: NEGATIVE There is no mammographic evidence of malignancy. A 1 year screening mammogram is recommended. Based on the Tyrer Cuzick model (a risk assessment model) the patient's lifetime risk is 5.6% and her 10 year risk is 5.1%. According to the ACR, ACS, and NCCN guidelines, an annual breast MRI exam along with mammogram is recommended if the patient's lifetime risk is 20% or greater. This exam was interpreted at Station ID: [id number]. NOTE: For mammograms, a report in lay terms will be sent to the patient. Approximately 15% of breast malignancies will not be visualized mammographically. In the management of a palpable breast mass, a negative mammogram must not discourage biopsy of a clinically suspicious lesion. Electronically Signed By: Randy atkins/yahaira:06/28/2024 09:42:25 letter sent: Normal Exam ACR BI-RADS Category 1: Negative 3341F
--- NOTE | 2024-06-28 07:03 | EKG_ITS ---
[address] [address] Test Date: 2024-06-28 Pat Name: Flora Trejo Department: Room: Gender: Female Regional Economic Liaison: MILO : 1950 Requested By: Order Number: [id number] Reading MD: Edward Das Measurements Intervals [place] Rate: 74 P: 56 WV: 138 QRS: -25 QRSD: 74 T: 29 QT: 380 QTc: 421 Interpretive Statements Normal sinus rhythm Minimal voltage criteria for LVH, may be normal variant ( R in aVL ) Electronically Signed On 06-28-2024 15:29:34 PDT by Edward Das
[2024-06-28 07:53] LABS: Appearance Urine UA CLEAR; Bilirubin Urine UA NEGATIVE (NEGATIVE); Color Urine UA YELLOW; Glucose Urine UA NEGATIVE (Negative); Ketones Urine UA NEGATIVE (NEGATIVE); Leukocyte Esterase Urine UA NEGATIVE (NEGATIVE); Nitrite Urine UA NEGATIVE (Negative); Occult Blood Urine UA NEGATIVE (Negative); Protein Urine UA NEGATIVE (Negative); Urobilinogen Urine UA 0.2 E.U./dL (0.2)
[2024-06-28 08:03] LABS: Add Manual Diff / Slide Review NO; Basophils Absolute Auto 0 /uL (0-100); Basophils Percent Auto 0.8 % (0-2); Eosinophils Absolute Auto 100 /uL (0-450); Eosinophils Percent Auto 1.9 % (2-4); Hematocrit 38.2 % (36-46); Hemoglobin 12.8 g/dL (12.0-16.0); Lymphocytes Absolute Auto 1800 /uL (1100-4500); Lymphocytes Percent Auto 31.8 % (25-40); Mean Corpuscular HGB Conc 33.6 % (30-36); Mean Corpuscular Volume 92.1 fL (80-100); Monocytes Absolute Auto 300 /uL (0-900); Neutrophils Absolute Auto 3400 /uL (1500-7000); Neutrophils Percent Auto 59.5 % (50-75); Platelet Count 209 X10^3/uL (150-400); Red Blood Cell Count 4.14 X10^6/uL (4.0-5.2); Red Cell Distribution Width 13.1 % (11.6-14.8); White Blood Cell Count 5.8 X10^3/uL (4.5-11.0); pH Urine UA 5.5 (4.5-8.0)
[2024-06-28 08:06] LABS: Bacteria Urine None Seen; Culture Indicated Urine Cult Not Indicated; RBC Urine None Seen (0-5/HPF); Squamous Epithelial Cell Urine None Seen (0-5/HPF); Urine Volume 10mL (spun); WBC Urine None Seen (0-5/HPF)
[2024-06-28 08:37] LABS: BUN Creatinine Ratio 29.1 (6-22); Blood Urea Nitrogen 25 mg/dL (7-17); Calcium 8.8 mg/dL (8.4-10.2); Carbon Dioxide 24 mmol/L (22-32); Chloride 109 mmol/L (98-107); Estimated Glomerular Filt Rate > 60 mL/min (>60); Glucose 114 mg/dL (80-110); HEMOLYSIS < 15 (0-50); Potassium 3.7 mmol/L (3.4-5.1); Sodium 141 mmol/L (137-145)
[2024-06-28 09:58] LABS: Hemoglobin A1C% w Est Avg Glu 5.5 % (4.0-6.0)
== END ==
LOC: MAMMO 07:00
PROVIDERS: Family Provider Family Medicine; PCP Family Medicine; Referring Provider Orthopaedic Surgery; Visit Provider Orthopaedic Surgery
DX: Z12.31 Encounter for screening mammogram for malignant neoplasm of breast (principal); Z01.812 Encounter for preprocedural laboratory examination; R92.333 Mammographic heterogeneous density, bilateral breasts; Z01.818 Encounter for other preprocedural examination; R73.9 Hyperglycemia, unspecified; N39.0 Urinary tract infection, site not specified
CPT/HCPCS: 36415; 77063; 77067; 80048; 81001; 83036; 85025; 93005

== ENCOUNTER 2024-09-02 06:12 | Day surgery (SDC) | payer MEDICARE, OTHER, SELFPAY ==
[2020-05-15 10:44] VITALS: BMI 24.2
[2024-08-25 09:30] VITALS: BMI 17.4
[2024-09-02] VITALS (16 sets, daily range): BP systolic 110–154; BP diastolic 51–88; PULSE 80–97; RESP 13–20; TEMP 36.1–37.1; O2SAT 91–100; BMI 24.2
--- NOTE | 2024-09-02 06:00 | DI.RAD.S_ITS ---
P whole ROCEDURE: XR KNEE RT 1TO2V INDICATIONS: TKA TECHNIQUE: 3 views of the knee were acquired. COMPARISON: [facility], CR, XR KNEE LT 1TO2V, 02/09/2019, 10:25. FINDINGS: Bones: There are no osseous abnormalities. Joints: Total knee prosthesis is anatomically aligned.. Soft tissues: Normal IMPRESSION: Total knee prosthesis is anatomically aligned. Dictated by: Ko Li M.D. on 09/03/2024 at 8:19 Approved by: Ko Li M.D. on 09/03/2024 at 8:19
[2024-09-02] MEDS: LACTATED RINGERS 1,000 ML 42 ML IV (07:12)
[2024-09-02] MEDS: ACETAMINOPHEN 325 MG TABLET 975 MG PO (07:17)
[2024-09-02] MEDS: CELECOXIB 200 MG CAPSULE 400 MG PO (07:17)
[2024-09-02] MEDS: VANCOMYCIN 1,000 MG/200 ML PIGGYBACK 200 MG IV (07:18)
--- NOTE | 2024-09-02 07:25 | P.OP_ITS ---
Operative Date/Time/Diagnoses Date of procedure: 09/02/24 Time of procedure: 07:45 Pre-op diagnosis: Right knee OA Post-op diagnosis: same Procedure & Clinicians Procedure: Right total knee arthroplasty Same procedure as scheduled: Yes Indications: The patient has had progressively worsening right knee pain with radiographic changes consistent with arthritis. Non-operative management has failed and the patient has requested total knee replacement. The risks, benefits and alternatives to surgery were discussed with the patient prior to proceeding. Risks discussed included, but were not limited to, failure to relieve pain, stiffness, infection, nerve damage, deep venous thrombosis, pulmonary embolism, stroke, coma, heart attack, permanent paralysis and , as well as the potential need for eventual revision of the prosthetic. Surgeon: Tejal Anglin Conference Interpreter: Bala Ruiz Anesthesia Type: General, Spinal and Sedation Operative Notes Findings: Adequate stability, soft but adequate bone Closure Type: primary Specimen(s): none sent Prosthetic devices, grafts, tissues, transplants, or devices: Anglin and nephew [facility] BCS 2 size 5 femur, size 3 tibia +9 poly, 35 x 7-1/2 mm patella Estimated Blood Loss (mL): 250 Blood products transfused: none Tourniquet time (min): 76 Procedure in detail: The patient was seen in the pre-operative area, where the patient identified the right knee as the operative site and this was marked with my initials. The patient received pre-operative antibiotics, and was taken to the operating room and placed on the operative table in the supine position. After satisfactory anesthesia, a time stamp assembler out was performed. The right leg was encircled with a tourniquet about the proximal thigh, and the leg was prepared from the toes to t he tourniquet with ChloroPrep in the usual fashion and draped through sterile drapes. The leg was elevated and exsanguinated with Eschmark bandage and the tourniquet inflated to [250] mmHg pressure. A PA was used during the procedure and was essential for intraoperative retraction and safe implantation of the components. The knee was approached through an approximately 18 cm incision centered over the patella and carried into the knee through a medial parapatellar arthrotomy. Portion of the medial and lateral meniscus was resected. Soft tissue was carefully mobilized around the patella the patella was measured with a caliper. Bone was resected from the patella and the patellar height was reconstituted with up an appropriate sized patellar component. A cover was then placed on the patella. A small amount of additional medial and lateral meniscus was resected. Zackary pins were placed for navigation. The adjustable tibial guide was pinned to the tibia. The knee was carefully mapped and navigated to allow full range of motion and good stability throughout the knee. The Cori robotic bur was used for the distal femoral resection. It looked like an appropriate distal femoral cut and the cut was made without difficulty. The rotation was assessed and the appropriate size femoral guide was placed on the distal femur and finishing cuts were made. There was no evidence of notching. The anterior, posterior and chamfer cuts were then made. The posterior osteophytes and soft tissues were then removed. The posterior capsule was injected with part of a mixture of 60 ml 0.25% Marcaine mixed with 20 ml Exparel for post operative pain control. The remainder of this mixture was injected into the capsule and subcutaneous tissues during cement curing. The tibial guide was carefully navigated and then pinned to the proximal tibia. Proximal tibial cut was made without difficulty.. The rotation was assessed. The patient was placed in extension residual medial and lateral meniscus as well as any residual bone was carefully resected. [No] additional tibia was resected. Hemostasis was achieved especially posteriorly. There was a partial popliteus fraying. Additional local was injected into the posterior capsule. The femoral component was trial was placed and the notch was finished. Trial tibial and femoral components were then placed and the knee placed through a range of motion. Range of motion was [0-130], with good stability throughout the range. The trials were then removed, and the tibia was finished. The bone was prepared with pulsatile lavage, and dried with a sponge. Cement was applied and the final prosthetics placed. Excess cement was removed during and after cement curing. A brief Betadine soak was performed. After confirming there was no extruded ce ment posteriorly, the final tibial insert was placed. The knee was copiously irrigated and the tourniquet deflated. Hemostasis was obtained with the bovie cautery. The capsule was closed with interrupted # 1 vicryl suture. The subcutaneous layer was closed with barbed sutures, and the skin with a running 3-0 V-Lock suture and skin sang. A lauren dressing was applied and the patient was taken to recovery having tolerated the procedure well. Complications: none Post-operative Condition: stable Disposition: Acute Care Plan for aftercare: The patient will be maintained on a standard total knee replacement protocol with weight bearing as tolerated. The patient will receive aspirin and sequential compression devices for DVT prophylaxis. The patient will be discharged home when safe for the home environment.
--- NOTE | 2024-09-02 07:25 | PM.PREOP ---
Pre-operative Note Interval Note History & Physical reviewed/Exam performed by Physician: Yes Changes to H&P: No
[2024-09-02] MEDS: CEFAZOLIN 2 GM/100 ML PREMIX 100 ML IV ×3 (08:30→23:58)
[2024-09-02] MEDS: TRANEXAMIC ACID 1,000 MG VIAL 1000 MG INJ ×2 (08:31→09:56)
--- NOTE | 2024-09-02 08:44 | SUR.OPER ---
Supine on padded OR bed. Pillow under head, arms secured on padded armboards <90 degree abduction. Safety belt across torso. Non-operative leg secured with tape over blanket over lower leg. Operative leg secured in DeMayo/Edison/Nathe positioner. Foam padded brace at thigh of operative leg.
[2024-09-02] MEDS: BUPIVACAINE 0.25% (PF) 60 ML, EPINEPHrine 0.3 MG INJ (08:53)
[2024-09-02] MEDS: hydrOXYzine 50 MG/ML INJ 25 MG IM (10:33)
[2024-09-02] MEDS: ONDANSETRON 4 MG/2 ML INJ IV ×2 (10:33→13:26)
[2024-09-02] MEDS: MIDAZOLAM 2 MG/2 ML VIAL 0.5 MG IV (10:54)
[2024-09-02] MEDS: OXYCODONE IR 5 MG TABLET PO (13:26)
[2024-09-02] MEDS: IBUPROFEN 400 MG TABLET PO ×2 (13:27→21:36)
--- NOTE | 2024-09-02 15:56 | PT.IIE ---
Current Diagnoses Unilateral primary osteoarthritis, right knee (09/02/24) Surgery Performed Operation Date: 09/02/24 07:45 Actual Procedures p Total Knee Arthroplasty - Robot(Right) - Tejal Anglin MD Surgical History (Last Reviewed 10/21/22 @ 10:30 by Dagoberto Castro MD) Anesthesia History of arthroscopy of both knees History of thyroidectomy Hx of cholecystectomy Status post bilateral cataract extraction Status post eye surgery Status post hysterectomy () Status post knee surgery Status post knee surgery (09/14/14) Medical History (Last Reviewed 10/21/22 @ 10:30 by Dagoberto Castro MD) Cataracts, bilateral Chronic cough Fractures Glaucoma Headache History of esophageal stricture Legally blind Migraines Osteoarthritis Osteoporosis Sleep apnea Physical Therapy Inpatient Evaluation/Re-Eval M1 PT/OT-IP Prior Functional Status Start: 09/02/24 13:29 Freq: NEEDED Status: Active Protocol: Document 09/02/24 15:27 MB (Rec: 09/02/24 15:55 MB [id number]) Medical Review Prior Functional Status Medical History Reviewed Yes Diet/Fluid Consistency Regular Communication WNLs Mobility and Gait I Activities of Daily Living and IADL's I, walked to [employer] gym and pt has a child's boutique in [facility] Prior Functional Level (Other details) Pt is legally blind and does not drive, her 6 months ago and daughter can drive pt if needed Social History Household Members none Living Arrangements House Number of Floors (Floors) One Floor Number of Stairs To Enter/Railing? Ramp to enter Home Environment High Toilet,Walk in Shower, Built-In Shower Seat Home Equipment Four Wheel Walker,Hand Held Shower,Grab Bars Near Toilet, Grab Bars In Shower Employment Status Self-Employed M2 PT-IP Current Condition Start: 09/02/24 13:29 Freq: NEEDED Status: Active Protocol: Document 09/02/24 15:27 MB (Rec: 09/02/24 15:55 MB [id number]) Physical Therapy Current Condition Current Condition Evaluation Date 09/02/24 Treatment Diagnosis R TKR M3 PT-IP Subjective Start: 09/02/24 13:29 Freq: NEEDED Status: Active Protocol: Document 09/02/24 15:27 MB (Rec: 09/02/24 15:55 MB [id number]) Subjective Physical Therapy Visit Type Type Initial Evaluation Visit Start Time 15:27 Visit Stop Time 15:46 Number of THERAPY TECH Visits 0 Physical Therapy Visit Comments Patient Comments Pt is agreeable to mobility Therapy Pain Assessment Pain When Pain Assessed At Rest Pain Present Pain Present Denied Pain M4 PT-IP Mobility and Gait Start: 09/02/24 13:29 Freq: NEEDED Status: Active Protocol: Document 09/02/24 15:27 MB (Rec: 09/02/24 15:55 MB [id number]) PT-Bed Mobility Assessment Supine to Sit Supine to Sit Standby Assistance,1 Person Assistance,Head of Bed Elevated,Bedrails Scooting Scooting to Edge of Bed Standby Assistance PT-Transfer Assessment Sit to and From Stand Sit to and from Stand Contact Guard Assistance,1 Person Assistance,Use of Upper Extremities Equipment Transfer Assistive Device Gait Belt,Front Wheeled Walker Orthotic/Prosthetic Devices or Brace: No Transfers Transfer Destination Chair Transfer Technique Ambulation Transfer Ability Level of Assist Contact Guard Assistance Comments Mobility Comments Cues to push up from the bed and to reach back for the chair Gait Assessment Gait Gait Assistance Required: Contact Guard Assist Distance (Feet) 10 Able to Maintain Weight Bearing Status Yes During Gait Assistive Devices Assistive Device Gait Belt,Front Wheeled Walker Orthotic/Prosthetic Devices or Brace: No Gait Deviations General Gait Pattern Antalgic,Decreased Stride Length,Decreased Feet Clearance,Flexed Trunk,Narrow Based Gait,Step-to Gait Factors Limiting Gait Function Factors Limiting Gait Function Decreased Activity Tolerance, Decreased Strength,Limited Range of Motion,Pain,Poor Balance Comments Gait Comments 3'x1 and 10'x2 with 10' retropulsion with cues, cues to scoot right foot out before sitting to prevent force bending her right knee PT-Balance Assessment Sitting Balance and Reactions Static Sitting Balance Ability Good Dynamic Sitting Balance Ability Fair Standing Balance and Reactions Static Standing Balance Ability Fair Dynamic Standing Balance Ability Fair Device Used RW M5 PT-IP Objective Assessments Start: 09/02/24 13:29 Freq: NEEDED Status: Active Protocol: Document 09/02/24 15:27 MB (Rec: 09/02/24 15:55 MB [id number]) Orientation Orientation/Cognition Level of Alertness Alert Language Function Ability No Deficits Noted Safety Awareness Decreased Safety Awareness Memory Description No Deficits Noted Gross Range of Motion Upper Extremity ROM Impairments Defer to OT Lower Extremity ROM Assessment Right Impaired Impairments Right knee is dressed tightly and there is edema distal extremity, range is 10-30 deg this afternoon Strength Lower Extremity Strength Assessment Right Impaired Ankle B DF and great toe extension 5 /5 Comments Strength Comments LLE has functional strength and right hip and knee NT Coordination Assessment Gross Coordination Gross Coordination Impaired M6 PT-IP Treatment Start: 09/02/24 13:29 Freq: NEEDED Status: Active Protocol: Document 09/02/24 15:27 MB (Rec: 09/02/24 15:55 MB [id number]) Physical Therapy Treatment Exercises Exercises Ankle Pumps Education Education Provided Post-Op Packet M7 PT-IP Assessment and Plan Start: 09/02/24 13:29 Freq: NEEDED Status: Active Protocol: Document 09/02/24 15:27 MB (Rec: 09/02/24 15:55 MB [id number]) PT Summary Assessment and Plan Potential Rehabilitation Potential Good Status of Condition at Evaluation Evolving Summary Impairments Pain,ROM,Strength,Balance,Bed Mobility,Transfers,Gait, Activity Tolerance Progress Towards Goals Progressing Toward Goals Assessment Summary Pt is a pleasant 74 y/o female who is very I at baseline and she walks around [place] to gym and her shop. She does not drive as she is legally blind. Her 6 months ago and her daughter will stay with her a couple of nights at d/c and can drive her as needed. Pt presents with distal right LE edema where dressing does not reach and she has limited knee ROM this afternoon. She is CGA for mobility and stepping in the room this afternoon. Recommend d/c home with assistance and OPPT. Goals Bed Mobility Goal Independent Transfer Goal Standby Assistance,Front Wheeled Walker Gait Goal Standby Assistance,Front Wheel Walker Gait Distance 100 Days to Meet Goals 3 Frequency of Treatment Frequency Of Treatment Twice a Day Treatment Plan Physical Therapy Treatment Plan Bed Mobility Training,Transfer Training,Gait Training, Therapeutic Exercise,Balance Retraining,Post Op Education, Discharge Planning,Hot or Cold Pack,Neuromuscular Re-ed, Coordination Retraining,Manual Therapy Weight Bearing Status Weight Bearing Status Weight Bear as Tolerated Recommendations To Nursing Amount of Assist Needed 1 Person Assist Discharge Recommendations PT Discharge Recommendations Home with 26/05 Assist Available,Outpatient PT Transportation Needs at Discharge Private Vehicle
[2024-09-02] MEDS: Brimonidine [Alphagan P] 0.1 % drops 1 EACH EYE-BOTH ×2 (15:59→21:35)
[2024-09-02] MEDS: TRAVOPROST 0.004% 1 EACH EYE-BOTH (21:37)
[2024-09-02] MEDS: DOCUSATE 100 MG CAPSULE PO (21:37)
[2024-09-02] MEDS: ASPIRIN EC 81 MG TABLET PO (21:37)
[2024-09-03 05:42] LABS: Hematocrit 34.9 % (36-46); Hemoglobin 11.8 g/dL (12.0-16.0)
[2024-09-03] MEDS: ACETAMINOPHEN 325 MG TABLET 650 MG PO (06:40)
[2024-09-03] MEDS: OXYCODONE IR 5 MG TABLET PO ×2 (06:41→10:46)
[2024-09-03] MEDS: PANTOPRAZOLE DR 20 MG TABLET PO (06:41)
[2024-09-03] MEDS: LEVOTHYROXINE 50 MCG TABLET 150 MCG PO (06:41)
--- NOTE | 2024-09-03 06:57 | P.DS_ITS ---
History of Present Illness History of Present Illness Date Patient Seen: 09/03/24 Time Patient Seen: 06:57 Chief complaint: OPB Narrative: Operative Date/Time/Diagnoses Date of procedure: 09/02/24 Time of procedure: 07:45 Pre-op diagnosis: Right knee OA Post-op diagnosis: same Procedure & Clinicians Procedure: Right total knee arthroplasty Same procedure as scheduled: Yes Indications: The patient has had progressively worsening right knee pain with radiographic changes consistent with arthritis. Non-operative management has failed and the patient has requested total knee replacement. The risks, benefits and alternatives to surgery were discussed with the patient prior to proceeding. Risks discussed included, but were not limited to, failure to relieve pain, stiffness, infection, nerve damage, deep venous thrombosis, pulmonary embolism, stroke, coma, heart attack, permanent paralysis and , as well as the potential need for eventual revision of the prosthetic. Surgeon: Tejal Anglin Secondary School Teacher Librarian: Bala Ruiz Anesthesia Type: General, Spinal and Sedation Operative Notes Findings: Adequate stability, soft but adequate bone Closure Type: primary Specimen(s): none sent Prosthetic devices, grafts, tissues, transplants, or devices: Anglin and nephew [facility] BCS 2 size 5 femur, size 3 tibia +9 poly, 35 x 7-1/2 mm patella Estimated Blood Loss (mL): 250 Blood products transfused: none Tourniquet time (min): 76 Discharge Providers Provider Discharge Date: 09/03/24 Primary care physician: Rafal Rivas MD Consults: 09/02/24 06:00 Consult to Anesthesiology Routine Comment: Consulting Provider: Anesthesiologist Reason for consultation: Regional block for post operative pain control Has provider been notified: No 09/02/24 11:21 Consult to Discharge Planning Routine Comment: Consult to Occupational Therapy Evaluate & Treat Comment: Physician Instructions: Evaluate and treat Consult to Physical Therapy Evaluate & Treat Comment: Physician Instructions: postop TKA protocol Discharge provider: Annette Bar PA-C Summary Hospital Course Discharge Diagnosis: Right knee osteoarthritis, s/p right total knee arthroplasty Hospital Course: Ms Trejo's hospital course was unremarkable. On the morning of POD# 1, she was sitting up in a chair and reported walking around many times. She was eating and drinking without difficulty and her pain was controlled with oral medication. She planned to discharge home with her daughter later in the day. Exam Vital Signs (past 8 hours): Oxygen Delivery Method Room Air Oxygen Flow Rate 0 Narrative Exam Narrative: 5/5 strength in hip flexors, quadriceps, hamstrings, PF, DF, EHL on right. Sensation to light touch intact throughout RLE. Calf soft and compressible. MAGDA over Aquacel CDI. Objective Labs 09/03/24 05:24 Labs: Laboratory Results - last 24 hr 09/03/24 05:24 Hgb 11.8 L Hct 34.9 L PFSH Medical History (Updated 11/27/23 @ 11:29 by Rafal Rivas MD) History of esophageal stricture Legally blind Osteoarthritis Sleep apnea Chronic cough Migraines Headache Osteoporosis Fractures Glaucoma Cataracts, bilateral Surgical History History of arthroscopy of both knees Hx of cholecystectomy Status post bilateral cataract extraction Anesthesia Status post hysterectomy (~1986) History of thyroidectomy Status post eye surgery Status post knee surgery (09/14/14) Status post knee surgery Family History Mother Cancer Social History marital status: household members: none Smoking Status: Never smoker alcohol intake: current substance use type: does not use Discharge Assessment & Plan Assessment and Plan Assessment: Right knee osteoarthritis, s/p right total knee arthroplasty Plan of Treatment: Discharge home, ASA 81 mg BID for VTE prophylaxis, multimodal pain control, outpt PT, f/u in office as scheduled. Discharge Plan Discharge Plan Patient Disposition: Home Provider Discharge Comment: Pt has postop meds at home. Discharge orders & Medications Discharge Orders: Discharge (Order); Ordered 09/03/24 Ordered By: Annette Bar Prescriptions: Continued brimonidine [Alphagan P] 0.1 % drops 1 drp EYE-BOTH TID Qty: 0 travoprost [Travatan Z] 0.004 % Drops 1 drp EYE-BOTH BEDTIME Qty: 0 atorvastatin [Lipitor] 40 mg tablet 40 mg PO DAILY Qty: 90 3RF omeprazole 20 mg capsule,delayed release(DR/EC) 20 mg PO QDAY Qty: 90 3RF levothyroxine 150 mcg tablet 150 mcg PO SEE INSTRUCTIONS Qty: 90 3RF Rx Instructions: Takes 1 tab Mon-Fri only albuterol sulfate [Ventolin HFA] 90 mcg/actuation HFA aerosol inhaler 1 - 2 puff INHALATION Q4-6H PRN PRN (Reason: Shortness Of Breath) Qty: 18 11RF zolmitriptan [Zomig] 5 mg tablet See Rx Instructions PO .COMPLEX Qty: 7 0RF Rx Instructions: take 1 tab at onset of headache; if no relief, may repeat 1 tab after at least 2 hrs; max = 2 tabs/24 hrs PO (DME) Respironics DreamStation CPAP Qty: 1 Dose Instruction: As directed Patient Comments: Pressure: 5-10 cmH2O DME: [facility] Rx Instructions: As directed Follow up/Referrals: Annette Bar PA-C [Advanced Pulmonary Specialist] - 09/16/24 9:30 am (Appt:09/16 @ 9:30 with Joanie PAC @ [facility]) Rafal Rivas MD [Primary Care Provider] - Diet/Activity/Treatments Diet: Diet as Tolerated Activity: Weightbearing as tolerated. Walk frequently! Cold/Heat Therapy: Ice to knee as needed for pain. Skin/Wound/Dressing Care Report to your healthcare provider any signs of infection, such as:: chills, fever, night sweats, unusual drainage and unusual redness Dressing: May remove MAGDA wrap and shower on 09/05/2024. Leave dressing in place until follow up in office. No bathing or otherwise soaking incision. Call the office if the dressing becomes saturated inside. Visit Report/Discharge Packet Instructions: DI for Knee Replacement, DI for Prescription Opioid Use Stand Alone Forms: Patient Portal/API, Surgery Discharge Discharge Data Primary Care Provider: Rafal Rivas Attending Provider: Tejal Anglin
[2024-09-03 08:00] VITALS: BP 133/68; PULSE 97; RESP 17; TEMP 37.6; O2SAT 96
[2024-09-03] MEDS: DOCUSATE 100 MG CAPSULE PO (08:38)
[2024-09-03] MEDS: ASPIRIN EC 81 MG TABLET PO (08:38)
[2024-09-03] MEDS: Brimonidine [Alphagan P] 0.1 % drops 1 EACH EYE-BOTH (08:39)
--- NOTE | 2024-09-03 08:50 | PT.IPTN ---
Current Diagnoses Unilateral primary osteoarthritis, right knee (09/02/24) Surgery Performed Operation Date: 09/02/24 07:45 Actual Procedures p Total Knee Arthroplasty - Robot(Right) - Tejal Anglin MD Physical Therapy Treatment Note M2 PT-IP Current Condition Start: 09/02/24 13:29 Freq: NEEDED Status: Active Protocol: Document 09/02/24 15:27 MB (Rec: 09/02/24 15:55 MB [id number]) Physical Therapy Current Condition Current Condition Evaluation Date 09/02/24 Treatment Diagnosis R TKR M3 PT-IP Subjective Start: 09/02/24 13:29 Freq: NEEDED Status: Active Protocol: Document 09/03/24 09:31 TS (Rec: 09/03/24 09:36 TS [id number]) Subjective Physical Therapy Visit Type Type Treatment Note Visit Start Time 08:50 Visit Stop Time 09:05 Number of [employer]CH[employer] Visits 1 Physical Therapy Visit Comments Patient Comments Pt found resting in the chair, she is agreeable to PT. Therapy Pain Assessment Pain When Pain Assessed At Rest Pain Present Pain Present Pain Reported M4 PT-IP Mobility and Gait Start: 09/02/24 13:29 Freq: NEEDED Status: Active Protocol: Document 09/03/24 09:31 TS (Rec: 09/03/24 09:36 TS [id number]) PT-Transfer Assessment Sit to and From Stand Sit to and from Stand Contact Guard Assistance,1 Person Assistance,Use of Upper Extremities Equipment Transfer Assistive Device Gait Belt,Front Wheeled Walker Orthotic/Prosthetic Devices or Brace: No Comments Mobility Comments STS with FWW CGA. She ambualtes ~100' CGA/SBA with FWW and a step to gait. Educated pt on intensity and frequency on ther-ex. Pt was left with OT, all needs met. Gait Assessment Gait Gait Assistance Required: Contact Guard Assist Distance (Feet) 100 Assistive Devices Assistive Device Gait Belt,Front Wheeled Walker Orthotic/Prosthetic Devices or Brace: No Gait Deviations General Gait Pattern Antalgic,Decreased Stride Length,Decreased Feet Clearance,Flexed Trunk,Narrow Based Gait,Step-to Gait Factors Limiting Gait Function Factors Limiting Gait Function Decreased Activity Tolerance, Decreased Strength,Limited Range of Motion,Pain,Poor Balance PT-Balance Assessment Sitting Balance and Reactions Static Sitting Balance Ability Normal Dynamic Sitting Balance Ability Good Standing Balance and Reactions Static Standing Balance Ability Good Dynamic Standing Balance Ability Fair Device Used FWW M5 PT-IP Objective Assessments Start: 09/02/24 13:29 Freq: NEEDED Status: Active Protocol: Document 09/02/24 15:27 MB (Rec: 09/02/24 15:55 MB [id number]) Orientation Orientation/Cognition Level of Alertness Alert Language Function Ability No Deficits Noted Safety Awareness Decreased Safety Awareness Memory Description No Deficits Noted Gross Range of Motion Upper Extremity ROM Impairments Defer to OT Lower Extremity ROM Assessment Right Impaired Impairments Right knee is dressed tightly and there is edema distal extremity, range is 10-30 deg this afternoon Strength Lower Extremity Strength Assessment Right Impaired Ankle B DF and great toe extension 5 /5 Comments Strength Comments LLE has functional strength and right hip and knee NT Coordination Assessment Gross Coordination Gross Coordination Impaired M6 PT-IP Treatment Start: 09/02/24 13:29 Freq: NEEDED Status: Active Protocol: Document 09/03/24 09:31 TS (Rec: 09/03/24 09:36 TS [id number]) Physical Therapy Treatment Education Education Provided Weight Bearing Status,Post-Op Packet,Safety M7 PT-IP Assessment and Plan Start: 09/02/24 13:29 Freq: NEEDED Status: Active Protocol: Document 09/03/24 09:31 TS (Rec: 09/03/24 09:36 TS [id number]) PT Summary Assessment and Plan Potential Rehabilitation Potential Good Summary Impairments Pain,ROM,Strength,Balance,Bed Mobility,Transfers,Gait, Activity Tolerance Progress Towards Goals Progressing Toward Goals Assessment Summary Wendy is making progress with her mobility. She is CGA for STS with FWW. She progressed her gait to ~100'SBA/CGA. Pt has daughter to assist her at home and has all the equipment she needs. PT is recommending home with 24/7 assist. Goals Bed Mobility Goal Independent Transfer Goal Standby Assistance,Front Wheeled Walker Gait Goal Standby Assistance,Front Wheel Walker Gait Distance 100 Days to Meet Goals 3 Frequency of Treatment Frequency Of Treatment Twice a Day Treatment Plan Physical Therapy Treatment Plan Bed Mobility Training,Transfer Training,Gait Training, Therapeutic Exercise,Balance Retraining,Post Op Education, Discharge Planning,Hot or Cold Pack,Neuromuscular Re-ed, Coordination Retraining,Manual Therapy Weight Bearing Status Weight Bearing Status Weight Bear as Tolerated Recommendations To Nursing Amount of Assist Needed 1 Person Assist Discharge Recommendations PT Discharge Recommendations Home with 24/7 Assist Available,Outpatient PT Transportation Needs at Discharge Private Vehicle
--- NOTE | 2024-09-03 09:23 | OT.IP.EVAL ---
Current Diagnoses Unilateral primary osteoarthritis, right knee (09/02/24) Surgery Performed Operation Date: 09/02/24 07:45 Actual Procedures p Total Knee Arthroplasty - Robot(Right) - Tejal Anglin MD Past Medical History (Last Reviewed 10/21/22 @ 10:30 by Dagoberto Castro MD) Cataracts, bilateral Chronic cough Fractures Glaucoma Headache History of esophageal stricture Legally blind Migraines Osteoarthritis Osteoporosis Sleep apnea Surgical History (Last Reviewed 10/21/22 @ 10:30 by Dagoberto Castro MD) Anesthesia History of arthroscopy of both knees History of thyroidectomy Hx of cholecystectomy Status post bilateral cataract extraction Status post eye surgery Status post hysterectomy (~1986) Status post knee surgery Status post knee surgery (09/14/14) Occupational Therapy Inpatient Evaluation/Re-Eval M1 PT/OT-IP Prior Functional Status Start: 09/02/24 13:29 Freq: NEEDED Status: Active Protocol: Document 09/02/24 15:27 MB (Rec: 09/02/24 15:55 MB [id number]) Medical Review Prior Functional Status Medical History Reviewed Yes Diet/Fluid Consistency Regular Communication WNLs Mobility and Gait I Activities of Daily Living and IADL's I, walked to [employer] gym and 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 Ramp to enter Home Environment High Toilet,Walk in Shower, Built-In Shower Seat Home Equipment Four Wheel Walker,Hand Held Shower,Grab Bars Near Toilet, Grab Bars In Shower Employment Status Self-Employed M1 PT/OT-IP Prior Functional Status Start: 09/03/24 09:23 Freq: NEEDED Status: Active Protocol: Document 09/03/24 09:23 [facility] (Rec: 09/03/24 09:33 [facility] [id number]) Medical Review Prior Functional Status Medical History Reviewed Yes Diet/Fluid Consistency Regular Communication WNLs Mobility and Gait I Activities of Daily Living and IADL's I, walked to [employer] and 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 Ramp to enter Home Environment High Toilet,Walk in Shower, Built-In Shower Seat Home Equipment Four Wheel Walker,Hand Held Shower,Grab Bars Near Toilet, Grab Bars In Shower Employment Status Self-Employed M2 OT-IP Current Condition Start: 09/03/24 09:23 Freq: Status: Active Protocol: Document 09/03/24 09:23 [facility] (Rec: 09/03/24 09:33 [facility] [id number]) Occupational Therapy Current Condition Current Condition Evaluation Date 09/03/24 Treatment Diagnosis S/P R TKA Diagnosis Onset Date 09/02/24 M3 OT- IP Subjective and Pain Start: 09/03/24 09:23 Freq: Status: Active Protocol: Document 09/03/24 09:23 [facility] (Rec: 09/03/24 09:33 [facility] [id number]) OT- Subjective Occupational Therapy Visit Type Type Initial Evaluation Visit Start Time 08:55 Visit Stop Time 09:23 Occupational Therapy Visit Comments Patient Comments Pt wanting to use the bathroom and get dressed. Patient/Caregiver Goals TO go home. OT Pain Assessment Pain When Pain Assessed During Mobility Pain Present Pain Present Pain Reported Location Right Leg Pain Behaviors Facial Grimacing,Holding Area M4 OT- IP ADL's Start: 09/03/24 09:23 Freq: Status: Active Protocol: Document 09/03/24 09:23 [facility] (Rec: 09/03/24 09:33 [facility] [id number]) OT [id number] Comments OT Self-Feeding Comments Not at meal time. OT ADL-Grooming Comments OT Grooming Comments NOt performed. OT ADL-Oral Care Comments Oral Care Comments NOt performed. OT ADL-Dressing General Eval Upper Body Dressing Ability Standby Assistance Lower Body Dressing Ability Moderate Assistance,Maximum Assistance Areas Needing Assistance Pants/Shorts,Socks,Shoes Comments OT Dressing Comments Assist for right sock and shoes due to swelling in her right leg. Pt's daughter states she has LB dressing equipment at home but hard to use as she is legally blind. Suggested pt not wear her onesie as the sleeve can cause a fall risk and better to use a robe. In addition easier to use if having to use the bathroom. OT ADL-Toileting General Evaluation Toileting Ability Standby Assistance Comments OT Toileting Comments VC to not twist her RLE while wiping. Suggested to wears pad at night so not having to hurry to the bathroom at night . OT ADL-Bathing Comments OT Bathing Comments Pt's daughter to assist her. Spoke of care for dressing needs. M5 OT- IP IADL's Start: 09/03/24 09:23 Freq: Status: Active Protocol: Document 09/03/24 09:23 [facility] (Rec: 09/03/24 09:33 [facility] [id number]) OT-Instrumental Activities of Daily Living Home Safety Awareness Awareness of Need for Assistance at Home Good Awareness Ability to Problem Solve Emergency Able to Problem Solve Situations Home Safety Comments Pt's daughter to be staying witih her initially. Meal Preparation Meal Preparation Caregiver Provides Assist Parimutuel Cashier Parimutuel Cashier Caregiver Provides Assist M6 OT- IP Functional Cognition Start: 09/03/24 09:23 Freq: Status: Active Protocol: Document 09/03/24 09:23 [facility] (Rec: 09/03/24 09:33 [facility] [id number]) Cognitive Factors Limiting Selfcare Function Cognitive Ability Level of Alertness Alert Patient Orientation Name,Age,Birthday,Month,Date, Year,Day of Week,Place, Situation Attention Span Ability Capable of Focused Attention, Capable of Sustained Attention Ability to Follow Commands Able to Follow One Step Commands Cognitive Comments Cognitive Assessment Comments INtact OT- Vision and Hearing OT- Hearing Assessment OT- Hearing Assessment WFL OT- Vision Assessment Vision History Blindness M7 OT- IP Mobility and Balance Start: 09/03/24:23 Freq: Status: Active Protocol: Document 09/03/24 09:23 [facility] (Rec: 09/03/24 09:33 [facility] [id number]) OT-Transfer Assessment Sit to and From Stand Sit to and from Stand Minimal Assistance Transfers Transfer Ability Standby Assistance,Contact Guard Assistance Technique Transfer Destination Chair,Toilet Transfer Technique Stand Step Pivot Devices Transfer Assistive Devices Gait Belt,Front Wheeled Walker Comments Mobility Comments [place] to stand from lower surfaces. CGA/close SBA due to unfamiliar environment as pt is legally blind and assist to help navigate the FWW. OT- Balance Assessment Sitting Balance and Reactions Static Sitting Balance Ability Normal Dynamic Sitting Balance Ability Good Standing Balance and Reactions Static Standing Balance Ability Good Dynamic Standing Balance Ability Fair M8 OT- IP Objective Assessments Start: 09/03/24:23 Freq: Status: Active Protocol: Document 09/03/24 09:23 [facility] (Rec: 09/03/24 09:33 [facility] [id number]) OT Gross Range of Motion Upper Extremity Range of Motion Assessment Within Functional Limits OT Strength Upper Extremity Strength Assessment Within Functional Limits M9 OT- IP Assessment and Plan Start: 09/03/24:23 Freq: Status: Active Protocol: Document 09/03/24 09:23 [facility] (Rec: 09/03/24 09:33 [facility] [id number]) OT Summary Assessment and Plan Potential Rehabilitation Potential Excellent Analytic Complexity at Evaluation Low Summary OT Impairments Pain,Range of Motion,Strength, Balance,Functional Mobility, Dressing,Toileting,Bathing, Toilet Transfers,Shower Transfers Progress Towards Goals Progressing Toward Goals Assessment Summary Pt low complexity and main barriers are pain and to be needing some assist for ADL and IADL needs at this time. Pt to have her daughter stay with her initially and have outpt PT. Goals Self-Feeding Goal Independent Grooming Goal Independent Dressing Goal Independent Toileting Goal Independent Bathing Goal Standby Assistance Toilet Transfer Goal Independent Shower Transfer Goal Standby Assistance Days to Meet Goals 7 Frequency of Treatment Other frequency 5x/week Treatment Plan OT Treatment Plan ADL Training,Functional Mobility,Patient/Family Education,Discharge Planning Discharge Recommendations OT Discharge Recommendations Home with Assistance, Outpatient PT Transportation Needs at Discharge Private Vehicle
--- NOTE | 2024-09-03 11:03 | CM.DANOTE ---
DCP Assessment Note: Pt is a 74yo female, resident of [place], is s/p R TKA. Pt lives in a house, alone. Pt's Primary Care Provider is Dr. Rafal Rivas and insurance is Medicare and [employer]. Reviewed chart and team rounds for pt's medical status and initial discharge needs. Pt medically cleared for discharge, pt daughter in room for transport. DCP not able to meet with pt as pt was having discharge teaching conducted with RN. Plan: Discharge home with daughter to transport. CM team will follow closely for coordination of discharge plans. KATHLEEN Barrios Discharge Planning/Care Management CM Discharge Assessment Start: 09/03/24 11:02 Freq: Status: Active Protocol: Document 09/03/24 11:02 MW (Rec: 09/03/24 11:03 MW [id number]) Discharge Planning Assessment Assigned Seamless Tube Roller SILVIO Lorenzana DPOA/Assigned Designee Name Hanna Ford Contact Information [phone] Advance Directives? Yes Advance Directives on File No History Provided By Patient,Medical Record Prior Living Arrangements House Comment [place] Household Members none Independent with ADL's Yes Is patient alert and oriented? Yes DME Already Rented / Owned FWW / Walker,Nebulizer Discharge Plan Home Review Status In Process Please Provide Date Initial DC 09/03/24 Assessment Was Performed Next Review Type Continued Stay Review
--- NOTE | 2024-09-03 11:26 | PC.NURSE ---
Addendum entered by Felicia Devries R.N. 09/03/24 11:32: Home medications returned to Pt prior to exiting unit. Original Note: D/c instructions reviewed with Pt. IV removed. Pt exited via w/c with SENIOR DESIGNER/ART DIRECTOR and spouse to private vehicle.
== END 2024-09-03 10:50 | disposition home or self-care (01) ==
LOC: OR 06:13 → AC 06:14
PROVIDERS: Family Provider Family Medicine; PCP Family Medicine; Referring Provider Orthopaedic Surgery; Visit Provider Orthopaedic Surgery
PROC: 0SRC0JZ Replacement of Right Knee Joint with Synthetic Substitute, Open Approach (ICD-10-PCS; CPT 27447; principal; 2024-09-02 07:45)
DX: M17.11 Unilateral primary osteoarthritis, right knee (principal); G89.18 Other acute postprocedural pain; M25.761 Osteophyte, right knee
CPT/HCPCS: 27447; 36415; 64450; 73560; 85014; 85018; 97161; 97165; 97530; 97535; C1776; J0171; J0330; J0690; J2250; J2405; J2704; J2765; J3010; J3410

== ENCOUNTER → 2024-09-10 11:13 | Outpatient (CLI) | payer MEDICARE, OTHER, SELFPAY ==
[2024-09-02 11:30] VITALS: BMI 24.2
--- NOTE | 2024-09-10 11:15 | DI.US.S_ITS ---
PROCEDURE: US PERIPH VENOUS LOW EXTREM RT INDICATIONS: TENDERNESS OF RIGHT CALF TECHNIQUE: Real-time imaging, as well as color and pulse Doppler interrogation, were performed of the lower extremity deep veins from the inguinal ligament to the popliteal fossa, with documentation of the visualized calf veins. COMPARISON: None. FINDINGS: The common femoral, femoral, popliteal, and the visualized calf veins are normally compressible, and free of intraluminal thrombus. Color and pulse Doppler demonstrate normal phasic intraluminal flow. There is normal augmentation response to distal compression maneuver. IMPRESSION: No evidence of DVT in visualized right lower extremity veins. Dictated by: Talon Crocker M.D. on 09/10/2024 at 13:10 Approved by: Talon Crocker M.D. on 09/10/2024 at 13:11
== END ==
PROVIDERS: Family Provider Family Medicine; PCP Family Medicine; Referring Provider Orthopaedic Surgery; Visit Provider Orthopaedic Surgery
DX: M79.661 Pain in right lower leg (principal)
CPT/HCPCS: 93971